=== PATIENT | male | born 1990 | race Caucasian/White ===

== ENCOUNTER 2017-06-27 10:11 | Day surgery (SDC) | payer OTHER, SELFPAY ==
[2017-06-27] VITALS (10 sets, daily range): BP systolic 97–135; BP diastolic 54–90; PULSE 64–92; RESP 11–19; TEMP 36.1–37.3; O2SAT 96–100; BMI 24.8; BMI 25.9
--- NOTE | 2017-06-27 | APP_PTH ---
PATIENT: MAYANK LINDO LOC: [facility] – [place], [place] U#:[id number] AGE/SX: 27/M ROOM: RE06/27/[address]: Dr. Spenser Davila MD : 1990 BED: DIS: 06/28/2017 SPEC #: [id number] RECD: 06/28/17 09:05 STATUS: ARIAS DAVE #: [id number] JOSE: 06/27/17 00:[address]: Spenser Davila DEPT: SURGICAL PATHOLOGY RECD BY: Romain Thomas ENTERED: 06/28/17 09:06 SP TYPE: APPENDIX OTHR DR: Dr. Buck Rouse MD Tissues: Appendix, NOS Procedures: Surgery Specimen Level III HEADER OPERATION: Laparoscopic, appendectomy PRE-OP DIAGNOSIS: Acute appendicitis TISSUE SUBMITTED: Appendix MICROSCOPIC DIAGNOSIS Appendix, appendectomy: Acute appendicitis. AM:manju 06/29/17 MICROSCOPIC DESCRIPTION Slides are reviewed. GROSS DESCRIPTION Received is one container labeled with the patient's name and designated appendix. The specimen consists of a J-shaped appendix measuring 8.5 cm in length and up to 1.5 cm in average diameter. The attached periappendiceal adipose tissue measures up to 1 cm in width. The serosa is congested. No obvious perforation is identified. The lumen contains brownish-black fecalith measuring 1 cm in greatest dimension. Marking Stitcher sections are submitted in one cassette. / SJ:manju 06/28/17 TC:2 CPT: 25583
--- NOTE | 2017-06-27 10:27 | CT_ITS ---
STUDY: CT ABDOMEN AND PELVIS WITHOUT CONTRAST REASON FOR EXAM: Male, 27 years old. MID ABDOMINAL PAIN X 3 DAYS. RADIATION DOSAGE (If Supplied By Facility): CTDIvol = ( 8.37 ) mGy, DLP = ( 461.91 ) mGycm TECHNIQUE: Transaxial images were obtained from the dome of the diaphragm to the symphysis pubis without oral contrast, and without intravenous contrast. Sagittal and coronal images were reconstructed. Individualized dose optimization techniques were used for this CT. COMPARISON: None. FINDINGS: The visualized lung bases are unremarkable. The visualized portions of the heart are within normal limits. Normal liver. Normal gallbladder and extrahepatic biliary system. Normal spleen. Normal pancreas. Normal bilateral adrenal glands. Normal right kidney. Normal left kidney. Normal visualized stomach. Normal small intestine. There are multiple colonic diverticula consistent with diverticulosis. There is a tubular, thick-walled appendix (>16mm) with appendicolith, consistent with acute appendicitis. There is surrounding inflammatory changes. There is no perforation or abscess. Normal abdominal aorta. Normal inferior vena cava. Normal retroperitoneum. Normal urinary bladder. Normal abdominal wall. Normal osseous structures. CT/Abdomen/Pelvis without Cont IMPRESSION: Acute appendicitis. No perforation or abscess. N.B. : The above information has been verbally conveyed by Hollie Alfredo MD to Dr. Trae Montalvo, Covering Physician, on 06/27/2017 11:51:20 (ET). Electronically Signed: Hollie Alfredo MD at 11:44 EDT Tel , Service support , N.B. : The above information has been verbally conveyed by Hollie Alfredo MD to Dr. Trae Montalvo, Covering Physician, on 06/27/2017 11:51:20 (ET).
[2017-06-27] MEDS: Ondansetron 4 MG/2 ML Vial IV (10:45)
[2017-06-27] MEDS: 0.9% Normal Saline 1,000 ML 125 ML IV (10:45)
[2017-06-27] MEDS: Morphine 4 MG/ML Syringe IV ×3 (10:45→15:40)
[2017-06-27 10:58] LABS: Absolute Lymphocyte Count 1.69 X10^3/ul (0.83-4.51); Absolute Neutrophil Count 6.1 X10^3/uL (2.0-7.7); Basophil# 0.03 X10^3/uL; Basophil% 0.3 % (0-1); Eosinophil# 0.13 X10^3/uL; Eosinophils% 1.5 % (0-5); Hematocrit 41.5 % (40-54); Hemoglobin 14.5 g/dl (13.0-16.5); Lymphocyte # 1.69 X10^3/ul (4.0); Lymphocyte % 19.4 % (19-41); Mean Corp Hgb Conc 34.9 g/gl (32-36); Mean Corpuscular Hgb 29.8 pg (27.0-32.0); Mean Corpuscular Volume 85.4 fL (80-94); Mean Platelet Vol. 9.1 fl (6.2-12.0); Monocyte# 0.76 X10^3/uL; Monocyte% 8.7 % (0-10); Neutrophil # 6.08 X10^3/uL (2.7-7.7); POSITIVE COUNT NO; POSITIVE DIFFERENTIAL NO; POSITIVE MORPHOLOGY NO; Platelet Count 236 K/mm3 (150-450); RBC Distribution Width CV 12.4 % (11.6-14.6); RBC Distribution Width SD 38.3 fl (35.1-43.9); Red Blood Count 4.86 M/mm3 (4.6-6.2); White Blood Count 8.7 K/mm3 (4.4-11.0)
[2017-06-27 11:08] LABS: AST(SGOT) 41 U/L (15-37); Alanine Aminotransfer ALT/SGPT 115 U/L (16-61); Albumin, Serum 4.1 g/dL (3.2-5.0); Alkaline Phosphatase 84 U/L (45-117); Anion Gap 9 (5-15); BUN 12 mg/dL (7-18); BUN/Creat Ratio 11.3 RATIO (10-20); Calcium,Total 9.2 mg/dL (8.5-10.1); Chloride 103 mmol/L (98-107); Creatinine, Serum 1.06 mg/dL (0.70-1.30); EST Glomerular Filtration Rate 88 mL/min (>60); Est Glom Filt Rate - Afr Amer 107 mL/min (>60); Estimated Creatinine Clearance 134.13 ml/min; Globulin 4.1 g/dL (2.2-4.2); Glucose 147 mg/dL (74-106); Lipase 88 U/L (73-393); Potassium 3.3 mmol/L (3.5-5.1); Protein, Total 8.2 g/dL (6.4-8.2); Sodium Level 140 mmol/L (136-145)
--- NOTE | 2017-06-27 11:53 | ED.VISSUMM ---
- ER Visit Summary Date of Service: 06/27/17 Chief Complaint: [Abdominal pain] History of Present Illness: The patient is a 27 M [presents the emergency department with abdominal pain that started 2 days ago. Patient states the pains been relatively continuous and he described initially as upper abdomen. Patient has had nausea. Patient took some Pepto-Bismol yesterday and this morning felt he was doing okay but then he ate which causes pain to increase. Patient also had a bowel movement today and he noticed black stool. Patient denies any fever. Patient does not have a history of peptic ulcer disease.] Physical Examination: [HEENT-PERRLA, EOMI. Cranial nerves II through XII grossly intact. TMs clear. Mucous membranes moist. No adenopathy. Cardiovascular-regular rate and rhythm without murmur or ectopy Lungs-clear to auscultation, chest wall stable without crepitus or subcu emphysema Abdomen-normoactive bowel sounds, soft. Patient has tenderness palpation over right lower quadrant with some guarding. There is no rebound, rigidity, or perineal signs. Rectal exam-patient had black stool that was Hemoccult negative Extremities-intact ?4, normal range of motion, normal pulses, atraumatic] Test Results: [CBC with differential was normal. Chemistries unremarkable. LFTs showed slightly elevated ALT of 115, AST 41. Lipase was 88. Hemoccult was negative.] CT flank obtained showed acute appendicitis Emergency Department Course and Treatment: [Patient was started on Zosyn. Patient case was discussed with Dr. Spenser Davila] who will present to the ER to evaluate patient for surgical intervention. Patient also received morphine and Zofran in the emergency department. Treatment Plan: [Admit for OR] Disposition: [Admit] Impression: [Acute appendicitis] This note was generated with [employer] dictation software. It may contain incorrect words, spelling, and punctuation that were not noted in review of the chart prior to signing ED Disposition - Plan for ED Patient: Chief Complaint: Abd Pain Referrals: Buck Rouse MD [Primary Care Provider] -
--- NOTE | 2017-06-27 12:26 | PCM.HP.STD ---
Problem List (1) Appendicitis Status: Acute (2) MTHFR gene mutation Status: Acute History of Present Illness Date of Admission: 06/27/17 The patient is a 27 year old M with a 2 day history of abdominal pain now localizing to the right lower quadrant. WBC count is within normal range. CT scan demonstrated appendicitis. Past Medical History Allergies shellfish derived Adverse Reaction (Verified 06/27/17 10:12) Nausea/Vom/Diarrhea Home Medications: Ambulatory Orders Medication Instructions Recorded [place]-3 Fatty Acids/Fish Oil [Fish 1 each PO DAILY 06/27/17 Oil 1,000 mg Capsule] Gifford's Wort 300 mg PO DAILY 06/27/17 Surgical History: no surgical history Smoking Status: Never smoker Tobacco Use: Non-smoker Alcohol: Occasional Review of Systems Constitutional: Reports: Anorexia. Denies: Chills, Fever, Weight Change HEENT: Denies: Head Aches, Sinus Congestion, Sinus Drainage Cardiovascular: Denies: Chest Pain, Palpitations Respiratory: Denies: Cough, Shortness of breath at rest, Sputum production Gastrointestinal: Reports: Abdominal Pain. Denies: Nausea, Vomiting Genitourinary: Denies: Dysuria Musculoskeletal: Denies: Joint Pain, Joint Tenderness Skin: Denies: Rash, Wounds Neurological: Denies: Numbness, Tingling, Focal weakness Psychiatric: Denies: Anxiety, Depression, Homicidal Ideations, Suicidal Ideations Hematologic/ Lymphatic: Denies: Easy Bruising, Easy Bleeding VTE Information - Inpt Only VTE Present on Admission: No VTE Mechan Device Prophylaxis: SCD's VTE Pharm Prophylaxis ordered?: No Patient Problems: Active and Suspected Problems Appendicitis (Acute) MTHFR gene mutation (Acute) - Physical Exam General: Alert, Oriented x3, Cooperative HEENT: Atraumatic, PERRLA, EOMI, Normocephalic Neck: Supple, No JVD, Negative Carotid Bruits Lungs: Clear to auscultation, Normal air movement Cardiovascular: Regular rate, No murmurs Abdomen: Bowel Sounds Present, Soft, Tender - RLQ Extremities: No edema, Capillary Refill Less than 3 Seconds Skin: No rashes, No breakdown Musculoskeletal: No Tenderness to Palpation of Joints or Extremities Neurological: Cranial nerves II-XII grossly intact Psych/Mental Status: Normal Affect, Appropriate Vital Signs Temp Pulse Resp BP Pulse Ox 98.3 F 92 19 H 135/90 H 100 06/27/17 10:13 06/27/17 10:13 06/27/17 10:13 06/27/17 10:13 06/27/17 10:13 Oxygen Delivery Method Room Air Weight: 97.522 kg Body Mass Index (BMI) 24.8 Microbiology Past 72 Hours 06/27/17 10:40 Stool Occult Blood (CLAIRE) - Final Stool Laboratory Tests Past 24 Hrs 06/27/17 06/27/17 06/27/17 10:40 10:40 10:40 WBC 8.7 RBC 4.86 Hgb 14.5 Hct 41.5 MCV 85.4 MCH 29.8 MCHC 34.9 RDW 12.4 RDW Differential 38.3 Plt Count 236 MPV 9.1 Immature Gran % (Auto) 0.100 Neut % (Auto) 70.0 Lymph % (Auto) 19.4 [place] % (Auto) 8.7 Eos % (Auto) 1.5 Baso % (Auto) 0.3 Absolute Neuts (auto) 6.1 Absolute Lymphs (auto) 1.69 Total Counted Not Reportable Sodium 140 Potassium 3.3 L Chloride 103 Carbon Dioxide 28.0 Anion Gap 9 BUN 12 Creatinine 1.06 Estim Creat Clear Calc 134.13 Est GFR (MDRD) Af Amer 107 Est GFR (MDRD) Non-Af 88 BUN/Creatinine Ratio 11.3 Glucose 147 H Calcium 9.2 Total Bilirubin 0.70 AST 41 H ALT 115 H Alkaline Phosphatase 84 Total Protein 8.2 Albumin 4.1 Globulin 4.1 Albumin/Globulin Ratio 1.0 Lipase 88 Blood Type O NEGATIVE Antibody Screen NEGATIVE Assessment/Plan Active and Suspected Problems Appendicitis (Acute) MTHFR gene mutation (Acute) Appendicitis I plan to perform a laparoscopic appendectomy. The patient understands the risks, benefits, possible complications and alternatives and consents to the procedure. He was given Zosyn in the ER He is heterozygous for MTHFR mutation. HE will get SCD's
[2017-06-27] MEDS: Bupivacaine Mpf 0.5% 30 ML VIAL (12:56)
--- NOTE | 2017-06-27 14:24 | PCM.OPRPT ---
Problem List (1) Appendicitis Status: Acute (2) MTHFR gene mutation Status: Acute Report of Operation Date of Procedure: 06/27/17 Pre-Operative Diagnosis: appendicitis Post-Operative Diagnosis: perforated appendicitis - minimal contamination Surgery/Procedure Performed:: laparoscopic appendectomy roll picker: None Type of Anesthesia:: General Anesthesiologist: Pushpa Tobar - deisy2E Specimen's removed: appendix Estimated Blood Loss (mL): 25 Fluids Replaced: 800 Description of Procedure: The patient was brought to the operating suite. Sign in was performed verifying patient, site, procedure, position, and DVT prophylaxis with SCDs. Patient received 4.5 g Zosyn for presumed appendicitis. Following induction of general anesthetic. The patients abdomen was prepped and draped in the usual fashion. Timeout was performed verifying patient, site, position. Local anesthetic was injected below the umbilicus. Incision made and dissection carried down to the umbilical root fascia. 2 stay sutures were placed. Incision made in the fascia, the peritoneum entered under direct visualization. A 10 mm Issa trocar was inserted and secured with the stay sutures. Pneumoperitoneum to 15 mmHg was insufflated. Visual inspection revealed the distal two thirds of the appendix seemed somewhat edematous and inflamed 2 5mm ports were placed in the standard position. The mesoappendix wasmobilized and then transected with a Harmonic scalpel. There was localized perforation inthe the mesoappendix with minimal contamination. The appendix transected with the intestinal load Endo GLADYS stapler at the base of the cecum. The mesoappendix was transected with a Harmonic scalpel. The appendix was placed in an Endobag and removed through the umbilical port site. An 0 PDS [id number] suture was placed around the umbilical port site defect. Pneumoperitoneum was reestablished. The appendiceal area was checked for hemostasis. 5 ports were removed under direct visualization with no signs of bleeding. Pneumoperitoneum was released. The Issa trocar was removed. The umbilical fascial suture was secured area did skin was closed with interrupted 4-0 Monocryl subcuticular sutures. Steri-Strips and bandages were applied. The patient was brought to recovery room in stable condition - Admit VTE Documentation VTE Present on Admission: No VTE Mechan Device Prophylaxis: SCD's
--- NOTE | 2017-06-27 14:30 | OP.PCM_ITS ---
Problem List (1) Appendicitis Status: Acute (2) MTHFR gene mutation Status: Acute Report of Operation Date of Procedure: 06/27/17 Pre-Operative Diagnosis: appendicitis Post-Operative Diagnosis: perforated appendicitis - minimal contamination Surgery/Procedure Performed:: laparoscopic appendectomy deputy fire marshal: None Type of Anesthesia:: General Anesthesiologist: Pushpa Tobar - deisy2E Specimen's removed: appendix Estimated Blood Loss (mL): 25 Fluids Replaced: 800 Description of Procedure: The patient was brought to the operating suite. Sign in was performed verifying patient, site, procedure, position, and DVT prophylaxis with SCDs. Patient received 4.5 g Zosyn for presumed appendicitis. Following induction of general anesthetic. The patient?s abdomen was prepped and draped in the usual fashion. Timeout was performed verifying patient, site , position. Local anesthetic was injected below the umbilicus. Incision made and dissection carried down to the umbilical root fascia. 2 stay sutures were placed. Incision made in the fascia, the peritoneum entered under direct visualization. A 10 mm Issa trocar was inserted and secured with the stay sutures. Pneumoperitoneum to 15 mmHg was insufflated. Visual inspection revealed the distal two thirds of the appendix seemed somewhat edematous and inflamed 2 5mm ports were placed in the standard position. The mesoappendix wasmobilized and then transected with a Harmonic scalpel. There was localized perforation inthe the mesoappendix with minimal contamination. The appendix transected with the intestinal load Endo GLADYS stapler at the base of the cecum. The mesoappendix was transected with a Harmonic scalpel. The appendix was placed in an Endobag and removed through the umbilical port site. An 0 PDS [id number] suture was placed around the umbilical port site defect. Pneumoperitoneum was reestablished. The appendiceal area was checked for hemostasis. 5 ports were removed under direct visualization with no signs of bleeding. Pneumoperitoneum was released. The Issa trocar was removed. The umbilical fascial suture was secured area did skin was closed with interrupted 4-0 Monocryl subcuticular sutures. Steri-Strips and bandages were applied. The patient was brought to recovery room in stable condition - Admit VTE Documentation VTE Present on Admission: No VTE Mechan Device Prophylaxis: SCD's
[2017-06-27] MEDS: Lactated Ringers 1,000 ML 100 ML IV (16:30)
--- NOTE | 2017-06-27 17:41 | NURSING ---
Ambulated with this nurses assistance to bathroom, then ambulated in mcintyre x1 around unit.
[2017-06-27] MEDS: Ketorolac 30 MG/ML Syringe IV (18:32)
[2017-06-27] MEDS: Piperacil/Tazobactam 3.375 GM/50 ML ML IV (20:05)
[2017-06-28] MEDS: oxyCODONE 5 MG Tablet PO ×2 (00:11→04:13)
[2017-06-28 03:30] VITALS: BP 113/58; PULSE 66; RESP 18; TEMP 36.9; O2SAT 100
[2017-06-28] MEDS: Lactated Ringers 1,000 ML 100 ML IV (04:17)
[2017-06-28] MEDS: Piperacil/Tazobactam 3.375 GM/50 ML ML IV (04:17)
[2017-06-28] MEDS: Ibuprofen 400 MG Tablet PO ×2 (06:25→14:47)
--- NOTE | 2017-06-28 06:28 | NURSING ---
Pt states now starting to pass some gas.
[2017-06-28 06:45] LABS: Anion Gap 9 (5-15); BUN 10 mg/dL (7-18); BUN/Creat Ratio 12.1 RATIO (10-20); Calcium,Total 8.3 mg/dL (8.5-10.1); Chloride 106 mmol/L (98-107); Creatinine, Serum 0.83 mg/dL (0.70-1.30); EST Glomerular Filtration Rate 117 mL/min (>60); Est Glom Filt Rate - Afr Amer 142 mL/min (>60); Glucose 131 mg/dL (74-106); Potassium 3.9 mmol/L (3.5-5.1); Sodium Level 137 mmol/L (136-145)
[2017-06-28 06:53] LABS: Absolute Neutrophil Count 9.7 X10^3/uL (2.0-7.7); Basophil# 0.01 X10^3/uL; Basophil% 0.1 % (0-1); Hematocrit 34.7 % (40-54); Hemoglobin 11.9 g/dl (13.0-16.5); Lymphocyte % 6.6 % (19-41); Mean Corp Hgb Conc 34.3 g/gl (32-36); Mean Corpuscular Hgb 29.9 pg (27.0-32.0); Mean Corpuscular Volume 87.2 fL (80-94); Mean Platelet Vol. 9.2 fl (6.2-12.0); Monocyte# 1.56 X10^3/uL; Monocyte% 12.9 % (0-10); Neutrophil # 9.71 X10^3/uL (2.7-7.7); Neutrophil % 80.2 % (47-70); Platelet Count 216 K/mm3 (150-450); RBC Distribution Width CV 12.3 % (11.6-14.6); RBC Distribution Width SD 38.3 fl (35.1-43.9); Red Blood Count 3.98 M/mm3 (4.6-6.2); White Blood Count 12.1 K/mm3 (4.4-11.0)
[2017-06-28 07:03] LABS: POSITIVE COUNT NO; POSITIVE DIFFERENTIAL YES; POSITIVE MORPHOLOGY NO
[2017-06-28 07:04] LABS: Differential Indicated SCAN CRITERIA MET
[2017-06-28 07:20] LABS: Differential Comment SCANNED
--- NOTE | 2017-06-28 07:22 | PCM.DC.APPY ---
Discharge Diet: Light diet - advance as tolerated Discharge Activity: May Not Drive - for 3-5 days or while taking narcotic pain meds. May shower in (days): 1 Suture Line Care: Avoid Pulling/Pushing, Avoid Pinching/Bending Additional Dressing/Incision Instructions:: Keep dressing clean and dry. Change or remove dressing in 2 days. Leave steri strips for 1 week. May protect with a gauze bandaid. Medications to take at Discharge [place]-3 Fatty Acids/Fish Oil [Fish Oil 1,000 mg Capsule] 1 each PO DAILY 06/27/17 [place]mair's Wort 300 mg PO DAILY 06/27/17 Ibuprofen [Motrin] 400 mg PO Q4H PRN PRN tablet 06/28/17 Oxycodone [Oxyir] 5 mg PO Q4H PRN PRN 7 Days #20 tab 06/28/17 Allergies/Adverse Reactions: Allergies shellfish derived Adverse Reaction (Verified 06/27/17 10:12) Nausea/Vom/Diarrhea The following prescriptions were given: Oxycodone [Oxyir] 5 mg PO Q4H PRN PRN 7 Days #20 tab PRN Reason: Severe Pain (6-12/29) Primary Care Physician: Buck Rouse MD [Primary Care Provider] - Please Follow Up With: Spenser Davila MD - [phone] When: Call to make a follow up appointment in 1 week.
[2017-06-28 08:05] VITALS: BP 105/45; PULSE 57; RESP 16; TEMP 36.9; O2SAT 100
[2017-06-28 14:47] LABS: Pathologist Review Reviewed
--- NOTE | 2017-06-28 14:54 | PCM.PN.SRG ---
Patient Problems: Active and Suspected Problems Appendicitis (Acute) MTHFR gene mutation (Acute) Subjective: manageable incisional pain, tolerating diet - Physical Exam General: Alert, Oriented x3 Lungs: Clear to auscultation, Normal air movement Cardiovascular: Regular rate, Regular Rhythm Abdomen: Bowel Sounds Present, Soft, Tender - incisions Vital Signs Temp Pulse Resp BP Pulse Ox 98.5 F 57 L 16 105/45 L 100 06/28/17 08:05 06/28/17 08:05 06/28/17 08:05 06/28/17 08:05 06/28/17 08:05 Oxygen Delivery Method Room Air Weight: 101.605 kg Body Mass Index (BMI) 25.9 Intake and Output for Last 24 Hours 06/26/17 06/27/17 06/28/17 23:59 23:59 23:59 Intake Total 1040 / 1040 2681.6 / 2681.6 Output Total 1600 / 1600 Balance 1040 / 1040 1081.6 / 1081.6 Microbiology Past 72 Hours 06/27/17 10:40 Stool Occult Blood (CLAIRE) - Final Stool Laboratory Tests Past 24 Hrs 06/28/17 06/28/17 05:52 05:52 WBC 12.1 H RBC 3.98 L Hgb 11.9 L Hct 34.7 L MCV 87.2 MCH 29.9 MCHC 34.3 RDW 12.3 RDW Differential 38.3 Plt Count 216 MPV 9.2 Immature Gran % (Auto) 0.200 Neut % (Auto) 80.2 H Lymph % (Auto) 6.6 L [place] % (Auto) 12.9 H Eos % (Auto) 0.0 Baso % (Auto) 0.1 Absolute Neuts (auto) 9.7 H Absolute Lymphs (auto) 0.80 L Total Counted Not Reportable Differential Comment SCANNED Diff Path Review Reviewed Sodium 137 Potassium 3.9 Chloride 106 Carbon Dioxide 22.0 Anion Gap 9 BUN 10 Creatinine 0.83 Estim Creat Clear Calc 171.30 Est GFR (MDRD) Af Amer 142 Est GFR (MDRD) Non-Af 117 BUN/Creatinine Ratio 12.1 Glucose 131 H Calcium 8.3 L Medical Necessity - Tobacco Use Smoking Status: Never smoker Tobacco Use: Non-smoker Assessment/Plan Active and Suspected Problems Appendicitis (Acute) MTHFR gene mutation (Acute) Appendicitis - POD # 1 s/p laparoscopic appendectomy. febrile overnight. The patient is maintained on Zosyn okay for discharge same postoperative day 1.
--- NOTE | 2017-06-28 14:55 | PCM.DC.SUM ---
Discharge Date and Diagnosis - Problem List Patient Problems: Active and Suspected Problems Appendicitis (Acute) MTHFR gene mutation (Acute) Date of Admission: 06/27/17 Date of Discharge: 06/28/17 - Primary Discharge Diagnosis Active and Suspected Problems Appendicitis (Acute) MTHFR gene mutation (Acute) Hospital Course and Treatment Operations: appendectomy Summary of Care Provided: The patient is a 27 year old M who presents with a one-day history of abdominal localizing to right lower quadrant pain with signs of appendicitis on CT scan. He underwent laparoscopic appendectomy. the patient was tolerated oral pain medicine and a diet. He was ready discharged home on postoperative day 1. Discharge Diet: Light diet - advance as tolerated Discharge Activity: May Not Drive - for 3-5 days or while taking narcotic pain meds. May shower in (days): 1 Suture Line Care: Avoid Pulling/Pushing, Avoid Pinching/Bending Additional Dressing/Incision Instructions:: Keep dressing clean and dry. Change or remove dressing in 2 days. Leave steri strips for 1 week. May protect with a gauze bandaid. Home Medications: Medications to take at Discharge [place]-3 Fatty Acids/Fish Oil [Fish Oil 1,000 mg Capsule] 1 each PO DAILY 06/27/17 [place]'s Wort 300 mg PO DAILY 06/27/17 Ibuprofen [Motrin] 400 mg PO Q4H PRN PRN tablet 06/28/17 Oxycodone [Oxyir] 5 mg PO Q4H PRN PRN 7 Days #20 tab 06/28/17 Following Prescrptions Were Given to Patient: Oxycodone [Oxyir] 5 mg PO Q4H PRN PRN 7 Days #20 tab PRN Reason: Severe Pain (6-10/10) Primary Care Physician: Buck Rouse MD [Primary Care Provider] - Please Follow Up With: Spenser Davila MD - [phone] When: Call to make a follow up appointment in 1 week. Medical Necessity - Tobacco Use Smoking Status: Never smoker Tobacco Use: Non-smoker Meaningful Use Info Meaningful Use Diagnoses (Choose all that apply): None applicable
[2017-06-28 15:01] VITALS: BP 128/62; PULSE 68; RESP 18; TEMP 36.6; O2SAT 100
== END 2017-06-28 15:09 | disposition home or self-care (01) ==
LOC: ED 12:27 → SDC 13:09 → MS2 17:24
PROVIDERS: Emergency Provider Emergency Medicine; Family Provider Family Medicine; PCP Family Medicine; Visit Provider Surgery
PROC: 0DTJ4ZZ Resection of Appendix, Percutaneous Endoscopic Approach (ICD-10-PCS; CPT 44970; principal; 2017-06-27 13:00)
DX: K35.2 Acute appendicitis with generalized peritonitis (principal); E72.12 Methylenetetrahydrofolate reductase deficiency
CPT/HCPCS: 44970; 36415; 74176; 80048; 80053; 82274; 83690; 85025; 86850; 86900; 88304; 97802; 99285; J7030; J7120; A4216; J2405

== ENCOUNTER 2017-06-29 01:41 | Emergency (ER) | payer OTHER, SELFPAY ==
[2017-06-29 01:43] VITALS: BP 125/69; PULSE 86; RESP 18; TEMP 37.3; O2SAT 98; BMI 25.2
[2017-06-29] MEDS: Morphine 4 MG/ML Syringe IV (02:16)
--- NOTE | 2017-06-29 02:17 | ED.DCSUM_ITS ---
- ER Visit Summary Date of Service: 06/29/17 Chief Complaint: [] Abdominal pain History of Present Illness: The patient is a 27 M patient status post appendectomy 2 days ago discharge yesterday afternoon. He had an inflamed appendix. There was a small microperforation seen on surgical exploration. He was on inpatient antibiotics but none at home. He is on oxycodone at home. He had worsening pain this evening and a temperature of 100.1 at midnight so he came in for further evaluation. Physical Examination: Vital signs reviewed General: Well-nourished well-developed Head: Normocephalic atraumatic Eyes: Pupils equal round and reactive to light extraocular movements intact ENT: TMs clear no hemotympanum no trauma Neck: Nontender full range of motion Cardiovascular: Regular rate rhythm no murmurs normal S1-S2 Respiratory: No distress clear to auscultation bilaterally chest nontender Abdomen: Soft. Surgical incisions clean dry and intact. Mild lower abdominal tenderness without guarding or rebound. Back: Nontender no CVA tenderness Extremities: Nontender active range of motion ?4 extremities no trauma Skin: Normal color no trauma Neuro alert oriented cranial nerves II through XII intact normal strength sensation reflexes Test Results: [] Emergency Department Course and Treatment: [] Patient given a dose of IV morphine. Afebrile here. CBC obtained after speaking to Dr. Davila. BC is 9.9. This is down from 12.1. At this time of the low suspicion for intra- abdominal infection that would warrant antibiotics or a CAT scan. He is resting comfortably. He will follow-up as an outpatient Treatment Plan: [] Disposition: [] Impression: [] Postop abdominal pain This note was generated with [employer] dictation software. It may contain incorrect words, spelling, and punctuation that were not noted in review of the chart prior to signing ED Disposition - Plan for ED Patient: Chief Complaint: Abd Pain Referrals: Buck Rouse MD [Primary Care Provider] -
[2017-06-29 02:28] LABS: Absolute Neutrophil Count 7.5 X10^3/uL (2.0-7.7); Basophil# 0.03 X10^3/uL; Basophil% 0.3 % (0-1); Eosinophil# 0.05 X10^3/uL; Eosinophils% 0.5 % (0-5); Hematocrit 33.9 % (40-54); Hemoglobin 11.8 g/dl (13.0-16.5); Lymphocyte % 12.1 % (19-41); Mean Corp Hgb Conc 34.8 g/gl (32-36); Mean Corpuscular Hgb 30.7 pg (27.0-32.0); Mean Corpuscular Volume 88.3 fL (80-94); Mean Platelet Vol. 8.9 fl (6.2-12.0); Monocyte# 1.05 X10^3/uL; Monocyte% 10.6 % (0-10); Neutrophil # 7.54 X10^3/uL (2.7-7.7); Neutrophil % 76.2 % (47-70); Platelet Count 201 K/mm3 (150-450); RBC Distribution Width CV 12.4 % (11.6-14.6); RBC Distribution Width SD 39.5 fl (35.1-43.9); Red Blood Count 3.84 M/mm3 (4.6-6.2); White Blood Count 9.9 K/mm3 (4.4-11.0)
[2017-06-29 02:29] LABS: POSITIVE COUNT NO; POSITIVE DIFFERENTIAL NO; POSITIVE MORPHOLOGY NO
--- NOTE | 2017-06-29 02:33 | ED.DEP ---
ED Disposition - Plan for ED Patient: Disposition: Home or Assisted Living Chief Complaint: Abd Pain Instructions: After an Appendectomy Referrals: Buck Rouse MD [Primary Care Provider] - Spenser Davila MD [STAFF PHYSICIAN] -
[2017-06-29 03:12] VITALS: BP 121/67; PULSE 68; RESP 17; O2SAT 98
--- NOTE | 2017-06-29 03:12 | ED.RN ---
IV DC'ED, CATHETER INTACT, SMALL GAUZE DRESSING PLACED. DISCHARGE INSTRUCTIONS GIVEN TO AND REVIEWED WITH PATIENT, PATIENT DENIES QUESTIONS OR CONCERNS AND VOICES UNDERSTANDING OF DISCHARGE INSTRUCTIONS. PT AMBULATES OUT OF ROOM WITHOUT DIFFICULTY.
== END 2017-06-29 03:13 | disposition home or self-care (01) ==
PROVIDERS: Emergency Provider Emergency Medicine; Family Provider Family Medicine; PCP Family Medicine
DX: G89.18 Other acute postprocedural pain (principal); R10.9 Unspecified abdominal pain
CPT/HCPCS: 85025; 96374; 99283; A4216

== ENCOUNTER 2017-07-01 22:07 | Observation (INO) | payer OTHER, SELFPAY ==
[2017-07-01 22:09] VITALS: BP 119/71; PULSE 71; RESP 14; TEMP 37.2; O2SAT 97; BMI 25.0
[2017-07-01 23:03] LABS: Bacteria 0 SEEN /hpf (None Seen); Red Blood Cells-Urine 0 SEEN /hpf (0-5); Squamous Epithelial Cells - UA 0 SEEN /hpf (0-5)
[2017-07-01 23:05] LABS: Color, Urine Yellow (Yellow); Glucose, Dipstick Normal (Normal); Ketone-Dipstick 5 mg/dl (Negative); Leukocyte Esterase-Dipstick 25 /ul (Negative); Nitrite-Dipstick Negative (Negative); Occult Blood-Urine 25 /ul (Negative); Protein-Dipstick 30 mg/dl (Negative); Specific Gravity, Urine 1.025 (1.002-1.030); Urine Bilirubin Dipstick Negative (Negative); Urine Clarity Clear (Clear); Urine Urobilinogen Normal (Normal)
[2017-07-01 23:10] LABS: Mucous, Urine 2+ /hpf (<or=2+); White Blood Cells 0-5 SEEN /hpf (0-5)
--- NOTE | 2017-07-01 23:25 | ED.VISSUMM ---
- ER Visit Summary Date of Service: 07/01/17 Chief Complaint: Fever, intermittent abdominal pain History of Present Illness: The patient is a 27 M continued intermittent fevers for the past 4 days. 4 days postop appendectomy by Dr. Nash. Discharged. He was seen in the ED 2 days ago with an improved white count and discussion with surgery. He followed up with Dr. Nash today at 2 PM. States was having diarrhea that was watery all day yesterday. States had x-ray today along with a repeat CBC and stool studies sent. This evening at 9 PM was called by Dr. Nash sent to the ED for evaluation. States would continue to have fevers controlled with Tylenol. No cough. States did not have a Olson catheter. States feels and urine discomfort due to his fever. No dysuria. Pain is abdomen with come and go, currently does not have symptoms. Physical Examination: General: Alert and oriented ?3, no acute distress HEENT: Normocephalic, atraumatic. Moist mucosa membranes Neck: supple, nontender. Cardiovascular: Regular rate and rhythm, no murmurs Respiratory: Normal breath sounds, symmetric, no distress Abdomen: Soft, nontender, nondistended. Laparoscopic incisions with Steri-Strips with no drainage. 3 incisions. Extremities: Nontender, no edema, pulses intact ?4 Neuro: no focal neurological deficits. Test Results: CT abdomen pelvis: Concerns of ileus proximal small bowel. Postsurgical inflammatory findings cecum ascending colon and distal ileum. No abscess. Emergency Department Course and Treatment: Patient vital signs stable. Declines any medications. IV fluids started due to diarrhea symptoms. Workup initiated per request of surgery when called in. Abdominal labs are negative. Trending down white cell counts. CT scan noted ileus and postsurgical findings. The cannot rule out infection. However he has trending down white count. Discussed with covering surgeon, Dr. Lobo who will admit for observations for IV fluids. Stool cultures were performed as an outpatient. Later did receive callback from his surgeon, Dr. Nash updated and he will see in the hospital. Treatment Plan: [] Disposition: Admission Impression: 1. Ileus 2. Diarrhea 3. Postop day 4 appendectomy This note was generated with [employer] dictation software. It may contain incorrect words, spelling, and punctuation that were not noted in review of the chart prior to signing ED Disposition - Plan for ED Patient: Disposition: Acute Care Hospital [facility] Chief Complaint: General Illness Diagnosis: Ileus, Diarrhea, Postop appendectomy
--- NOTE | 2017-07-01 23:28 | ED.DCSUM_ITS ---
- ER Visit Summary Date of Service: 07/01/17 Chief Complaint: Fever, intermittent abdominal pain History of Present Illness: The patient is a 27 M continued intermittent fevers for the past 4 days. 4 days postop appendectomy by Dr. Nash. Discharged. He was seen in the ED 2 days ago with an improved white count and discussion with surgery. He followed up with Dr. Nash today at 2 PM. States was having diarrhea that was watery all day yesterday. States had x-ray today along with a repeat CBC and stool studies sent. This evening at 9 PM was called by Dr. Nash sent to the ED for evaluation. States would continue to have fevers controlled with Tylenol. No cough. States did not have a Olson catheter. States feels and urine discomfort due to his fever. No dysuria. Pain is abdomen with come and go, currently does not have symptoms. Physical Examination: General: Alert and oriented ?3, no acute distress HEENT: Normocephalic, atraumatic. Moist mucosa membranes Neck: supple, nontender. Cardiovascular: Regular rate and rhythm, no murmurs Respiratory: Normal breath sounds, symmetric, no distress Abdomen: Soft, nontender, nondistended. Laparoscopic incisions with Steri- Strips with no drainage. 3 incisions. Extremities: Nontender, no edema, pulses intact ?4 Neuro: no focal neurological deficits. Test Results: CT abdomen pelvis: Concerns of ileus proximal small bowel. Postsurgical inflammatory findings cecum ascending colon and distal ileum. No abscess. Emergency Department Course and Treatment: Patient vital signs stable. Declines any medications. IV fluids started due to diarrhea symptoms. Workup initiated per request of surgery when called in. Abdominal labs are negative. Trending down white cell counts. CT scan noted ileus and postsurgical findings. The cannot rule out infection. However he has trending down white count. Discussed with covering surgeon, Dr. Lobo who will admit for observations for IV fluids. Stool cultures were performed as an outpatient. Later did receive callback from his surgeon, Dr. Nash updated and he will see in the hospital. Treatment Plan: [] Disposition: Admission Impression: 1. Ileus 2. Diarrhea 3. Postop day 4 appendectomy This note was generated with [employer] dictation software. It may contain incorrect words, spelling, and punctuation that were not noted in review of the chart prior to signing ED Disposition - Plan for ED Patient: Disposition: Acute Care Hospital [facility] Chief Complaint: General Illness Diagnosis: Ileus, Diarrhea, Postop appendectomy
[2017-07-02] VITALS (8 sets, daily range): BP systolic 113–125; BP diastolic 63–74; PULSE 61–74; RESP 16–18; TEMP 36.4–37.2; O2SAT 97–100; BMI 25.0
[2017-07-02] MEDS: 0.9% Normal Saline 1,000 ML 1000 ML IV (00:04)
[2017-07-02 00:09] LABS: Absolute Neutrophil Count 4.8 X10^3/uL (2.0-7.7); Basophil# 0.02 X10^3/uL; Basophil% 0.3 % (0-1); Eosinophil# 0.24 X10^3/uL; Eosinophils% 3.1 % (0-5); Hematocrit 37.1 % (40-54); Hemoglobin 12.6 g/dl (13.0-16.5); Lymphocyte % 21.8 % (19-41); Mean Corpuscular Hgb 29.6 pg (27.0-32.0); Mean Corpuscular Volume 87.3 fL (80-94); Mean Platelet Vol. 8.4 fl (6.2-12.0); Monocyte# 1.04 X10^3/uL; Monocyte% 13.3 % (0-10); Neutrophil % 61.4 % (47-70); Platelet Count 236 K/mm3 (150-450); RBC Distribution Width CV 12.6 % (11.6-14.6); RBC Distribution Width SD 40.2 fl (35.1-43.9); Red Blood Count 4.25 M/mm3 (4.6-6.2); White Blood Count 7.8 K/mm3 (4.4-11.0)
[2017-07-02 00:10] LABS: POSITIVE COUNT NO; POSITIVE DIFFERENTIAL NO; POSITIVE MORPHOLOGY NO
[2017-07-02 00:29] LABS: ALB/GLOB Ratio 0.7 RATIO (0.9-2.4); AST(SGOT) 23 U/L (15-37); Alanine Aminotransfer ALT/SGPT 57 U/L (16-61); Albumin, Serum 3.1 g/dL (3.2-5.0); Alkaline Phosphatase 73 U/L (45-117); Anion Gap 8 (5-15); BUN 13 mg/dL (7-18); BUN/Creat Ratio 15.4 RATIO (10-20); Calcium,Total 8.7 mg/dL (8.5-10.1); Chloride 105 mmol/L (98-107); Creatinine, Serum 0.84 mg/dL (0.70-1.30); EST Glomerular Filtration Rate 115 mL/min (>60); Est Glom Filt Rate - Afr Amer 139 mL/min (>60); Estimated Creatinine Clearance 169.26 ml/min; Globulin 4.7 g/dL (2.2-4.2); Glucose 89 mg/dL (74-106); Lipase 72 U/L (73-393); Potassium 3.6 mmol/L (3.5-5.1); Protein, Total 7.8 g/dL (6.4-8.2); Sodium Level 140 mmol/L (136-145)
[2017-07-02] MEDS: 0.9% Normal Saline 1,000 ML 125 ML IV (00:53)
--- NOTE | 2017-07-02 03:35 | ED.RN ---
see drRambo order sheet.
--- NOTE | 2017-07-02 03:35 | ED.RN ---
received orders from dr. horne.
[2017-07-02] MEDS: Lactated Ringers 1,000 ML 75 ML IV ×2 (04:34→18:53)
[2017-07-02] MEDS: metroNIDAZOLE 500 MG Tablet PO ×3 (06:21→20:34)
--- NOTE | 2017-07-02 06:26 | PCM.HP.BLA ---
History and Physical Date of Admission: 07/02/17 ? Gordy is a patient I am following for acute appendicitis. ~I performed a laparoscopic appendectomy on WednesdayJune 27.. ~The patient's appendix demonstrated acute appendicitis with localized retroperitoneal~perforation~with minimal contamination. ~The patient did well post operatively and was discharged to home on post operative day #1. ? The patient then noted onset of all over body aches and fever up to 101, for which she been taking Tylenol nearly regularly [id number]. ~He was tolerating food and was having flatus and bowel movements but overall was feeling poor. ~He went back to the emergency department he was evaluated by the emergency physician on Wednesday night was found of a normal white blood cell count unremarkable vitals and afebrile. ~He was sent home. ~It spoken with him 2 times since that ER visit. ~Since last night, the patient still notes fever and generalized body aches area. ~He now notes relatively rampant diarrhea, which is watery-nonbloody. ~When he stops taking Tylenol. ~He again notes a low to moderate fever and generalized body aches. ~He has some epigastric discomfort but otherwise no specific abdominal pain and no right lower quadrant pain
--- NOTE | 2017-07-02 06:33 | HP.PCM_ITS ---
History of Present Illness Date of Admission: 07/02/17 The patient is a 27 year old M presents with all over body aches and diarrhea. ? Gordy is a patient I am following for acute appendicitis. ~I performed a laparoscopic appendectomy on WednesdayJune 27.. ~The patient's appendix demonstrated acute appendicitis with localized retroperitoneal~perforation~with minimal contamination. ~The patient did well post operatively and was discharged to home on post operative day #1. ? The patient then noted onset of all over body aches and fever up to 101, for which she been taking Tylenol nearly regularly [id number]. ~He was tolerating food and was having flatus and bowel movements but overall was feeling poor. ~He went back to the emergency department he was evaluated by the emergency physician on Wednesday night was found of a normal white blood cell count unremarkable vitals and afebrile. ~He was sent home. ~It spoken with him 2 times since that ER visit. ~Since last night, the patient still notes fever and generalized body aches area. ~He now notes relatively rampant diarrhea, which is watery-nonbloody. ~When he stops taking Tylenol. ~He again notes a low to moderate fever and generalized body aches. ~He has some epigastric discomfort but otherwise no specific abdominal pain and no right lower quadrant pain. I saw me in the office yesterday afternoon. He was afebrile. His respiratory and cardiac exam were unremarkable. His abdomen was clinically benign with hyperactive bowel sounds. I obtained an abdominal multiview which demonstrated a mild ileus pattern. I obtained laboratory studies that initially returned as a normal white blood cell count. Compazine metabolic panel was also obtained, which was also unremarkable. I obtained stool cultures. C. difficile is returned as negative. Stool cultures, ova and parasites, and fecal WBCs are currently pending. The patient called last night again stating that he was again having diarrhea nearly on the hour and his mother was concerned that he was becoming dehydrated and we really weren't having any answers for his symptomatology other than viral symptoms after appendectomy. he presented to the emergency department. CBC was normal with mild increase in monocytes as the only abnormality, comfortable block panel was normal, CT scan of the abdomen did demonstrate more inflammation of the terminal ileum and cecum, then I would've expected given his stage of appendicitis with some mild ileus-type picture proximal to that without signs of intra-abdominal abscess, consistent with post operative appendiceal/periappendiceal abscess. Past Medical History Allergies shellfish derived Adverse Reaction (Verified 07/01/17 22:12) Nausea/Vom/Diarrhea Home Medications: Ambulatory Orders Medication Instructions Recorded [place]-3 Fatty Acids/Fish Oil [Fish 1 each PO DAILY 06/27/17 Oil 1,000 mg Capsule] Ibuprofen [Motrin] 400 mg PO Q4H PRN PRN tablet 06/28/17 Oxycodone [Oxyir] 5 mg PO Q4H PRN PRN 7 Days #20 tab 06/28/17 Surgical History: appendectomy - postoperative day 5 Smoking Status: Never smoker Review of Systems Constitutional: Reports: Anorexia, Fever, Malaise, Fatigue. Denies: Chills, Weight Change HEENT: Denies: Head Aches, Sinus Congestion, Sinus Drainage Cardiovascular: Denies: Chest Pain, Palpitations Respiratory: Denies: Cough, Shortness of breath at rest, Sputum production Gastrointestinal: Reports: Diarrhea. Denies: Abdominal Pain, Nausea, Vomiting Genitourinary: Denies: Dysuria Musculoskeletal: Denies: Joint Pain, Joint Tenderness Skin: Denies: Rash, Wounds Neurological: Denies: Numbness, Tingling, Focal weakness Psychiatric: Denies: Anxiety, Depression, Homicidal Ideations, Suicidal Ideations Hematologic/ Lymphatic: Denies: Easy Bruising, Easy Bleeding VTE Information - Inpt Only VTE Present on Admission: No VTE Mechan Device Prophylaxis: SCD's Patient Problems: Active and Suspected Problems Ileus (Acute) Diarrhea (Acute) - Physical Exam General: Alert, Oriented x3, Cooperative HEENT: Atraumatic, PERRLA, EOMI, Normocephalic Neck: Supple, No JVD, Negative Carotid Bruits Lungs: Clear to auscultation, Normal air movement Cardiovascular: Regular rate, No murmurs Abdomen: Bowel Sounds Present, Soft, Non Tender, Hyperactive Bowel Sounds, - - incisions are clean, dry, and intact Extremities: No edema, Capillary Refill Less than 3 Seconds Skin: No rashes, No breakdown Musculoskeletal: No Tenderness to Palpation of Joints or Extremities Neurological: Cranial nerves II-XII grossly intact Psych/Mental Status: Normal Affect, Appropriate Vital Signs Temp Pulse Resp BP Pulse Ox 97.5 F L 74 18 122/65 H 98 07/02/17 03:58 07/02/17 03:58 07/02/17 03:58 07/02/17 03:58 07/02/17 03:58 Oxygen Delivery Method Room Air Weight: 98.2 kg Body Mass Index (BMI) 25.0 Intake and Output for Last 24 Hours 06/30/17 07/01/17 07/02/17 23:59 23:59 23:59 Intake Total 237 / 237 Balance 237 / 237 Assessment/Plan Active and Suspected Problems Ileus (Acute) Diarrhea (Acute) postoperative day #5 status post appendectomy with complaint of fevers, generalized body ache. Since postoperative day 1 and now diarrhea, nonspecific terminal ileum and cecal inflammation without obvious abscess on CT scan Currently, I does plan to support the patient with IV fluids. His C. difficile was negative, his laboratory studies are unremarkable except for a monocytosis. Given the degree of inflammation of the terminal ileum and cecum. I will start him on oral Flagyl and await his cultures. I have asked for consultation from hospitalist to see if they have any other ideas as to the origin of his overall body aches or any possible etiologies that at this point, our escaping me.
--- NOTE | 2017-07-02 07:08 | PCM.PROGNOTE ---
Patient Problems: Active and Suspected Problems Ileus (Acute) Diarrhea (Acute) Subjective: Patient is a 27-year-old male with a past medical history of MTHFR gene mutation and a recent history of appendectomy by Dr. Nash on 06/27/2017 who presented to the ED at [facility] on 07/01/17 with fevers, generalized myalgias and severe diarrhea. He has been afebrile since admission. Pulse rate is currently 74 with a blood pressure of 122/65 and a respiratory rate of 18. Pulse ox is 97-99% on room air. All lab was personally reviewed. White blood cell count is 7.8 with an unremarkable differentiation. Hemoglobin is 12.6 and platelets are within normal limits. Electrolytes are within normal limits and the BUN and creatinine are normal. LFTs are normal. Lipase is normal at 72. Urine analysis is negative. The CT scan shows thickening of the cecum, ascending colon and the distal ileal loops with pericolonic stranding and inflammatory changes. No drainable abscess was seen. There are fluid-filled and contrast-filled proximal small bowel loops and free fluid in the right lower quadrant and upper pelvic region. He tells me that he is having more than 15 BM's a day. He has not vomited. He has no personal hx of IBD and there is no FH of IBD. Denies blood or mucous in the stool and states it is mostly water. He is c/o fevers and shaking chills. Also c/o myalgias. No joint swelling and no red joints. No dysuria. No cough. No sore throat. - Physical Exam General: Alert, Oriented x3, Cooperative, - - He looks somewhat pale and is not moving around much but does not look toxic HEENT: Atraumatic, PERRLA, EOMI, Normocephalic Oral: Moist Mucosa Neck: Supple, No JVD, Negative Carotid Bruits, No Nodes, No Nuchal Rigidity, Trachea Midline Lungs: Clear to auscultation, No rhonchi, No wheeze, No rales, Diminished - he is not taking a deep breath, poor effort Cardiovascular: Regular rate, Regular Rhythm, Normal S1, Normal S2, No murmurs, No Ectopic Activity, No rub noted, No Gallop, - - not tachycardic Abdomen: Bowel Sounds Present, Soft, Non-Distended, Tender - in the LLQ and oin the RLQ but no guarding. no masses Extremities: No clubbing, No cyanosis, No edema, No Calf Tenderness, Peripheral Pulses Normal Skin: No rashes, No breakdown, - - incisions are healing and there is no evidence of infection Musculoskeletal: No Tenderness to Palpation of Joints or Extremities, No Muscle Wasting Lymphatic: No Cervical, Supraclavicular, or Inguinal Adenopathy Neurological: Cranial nerves II-XII grossly intact, Neuro grossly intact Psych/Mental Status: Appropriate, Flat Affect Vital Signs Temp Pulse Resp BP Pulse Ox 97.5 F L 74 18 122/65 H 98 07/02/17 03:58 07/02/17 03:58 07/02/17 03:58 07/02/17 03:58 07/02/17 03:58 Oxygen Delivery Method Room Air Weight: 216 lb 7.903 oz Body Mass Index (BMI) 25.0 Intake and Output for Last 24 Hours 06/30/17 07/01/17 07/02/17 23:59 23:59 23:59 Intake Total 237 / 237 Balance 237 / 237 Medical Necessity - Tobacco Use Smoking Status: Never smoker Assessment/Plan Active and Suspected Problems Ileus (Acute) Diarrhea (Acute) Impressions 1. diarrhea associated with myalgias, fevers and shaking chills in a pt who is 5 days post op appy - viral? No abscess on CT of the abd and the pelvis. He is not toxic appearing and WBC and diff are unremarkable. Has not had a fever in the hospital. He tells me he is having BM's every hour but lab and PE not consistent with dehydration? Has not needed anything other than Tylenol for pain. Enteric pathogen panel is negative and the fecal leuko's drawn in Dr. Davila's office yesterday are normal. No hx of IBD. 2. 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 W/U so far has not revealed an etiology of his sx. Will get a CTA of the abdomen and pelvis to r/o ischemic bowel due to MTHFR mutation which is associated with thrombosis. discussed with Dr. Davila and then with Dr. Lobo. Code Visit Inpatient E&M: 08146 Subs Hosp L3
[2017-07-02] MEDS: Acetaminophen 325 MG Tablet PO (08:45)
[2017-07-02] MEDS: Ibuprofen 400 MG Tablet PO (12:52)
[2017-07-02] MEDS: 0.9% NaCl Peripheral Flush Adult/Peds IV (12:53)
--- NOTE | 2017-07-02 13:47 | CT_ITS ---
STUDY: CT ABDOMEN AND PELVIS WITH CONTRAST REASON FOR EXAM: Male, 27 years old. Recent appendectomy. Possible ischemic colitis or vessel injury. RADIATION DOSAGE (If Supplied By Facility): CTDIvol = ( 25.42 ) mGy, DLP = ( 881.81 ) mGycm TECHNIQUE: Transaxial images were obtained from the dome of the diaphragm to the symphysis pubis without oral contrast. 100 ml of Isovue 300 contrast was administered. Sagittal and coronal images were reconstructed. Individualized dose optimization techniques were used for this CT. COMPARISON: Comparison is made with prior study done earlier today. FINDINGS: Mild degree of dependent bibasilar atelectasis. The visualized portions of the heart are within normal limits. Normal liver. Normal gallbladder and extrahepatic biliary system. Normal spleen. There is evidence of perisplenic fluid. Normal pancreas. Normal bilateral adrenal glands. Normal right kidney. Normal left kidney. Normal visualized stomach. Fluid within nondilated small bowel loops. Fluid-filled colon. Scattered sigmoid diverticula. There are surgical clips in the region of the appendix consistent with a prior appendectomy. Increased markings are seen in the right lower quadrant in keeping with prior recent appendectomy. Small amount of free fluid is seen in the cul-de-sac. No abscess collection is seen. Normal abdominal aorta. Normal inferior vena cava. Normal retroperitoneum. Normal urinary bladder. Normal abdominal wall. Normal osseous structures. CT/CT ANGIO ABD&PEL W/O&W/DYE IMPRESSION: Findings suggestive of mild degree of ileus pattern. No definite colitis is seen. No vascular injury is present. Small amount of perisplenic fluid and fluid in the cul-de-sac. Postsurgical changes in the right lower quadrant secondary to prior appendectomy. Electronically Signed: Florin Leos MD at 15:23 EDT Tel [phone], Service support ,
[2017-07-02 22:42] LABS: Erythrocyte Sedimentation Rate 51 mm/hr (0-15)
--- NOTE | 2017-07-02 22:45 | CT_ITS ---
STUDY: CT ABDOMEN AND PELVIS WITHOUT CONTRAST REASON FOR EXAM: Male, 27 years old. Post appendectomy. Fever, chills and diarrhea. RADIATION DOSAGE (If Supplied By Facility): CTDIvol = ( 11.96 ) mGy, DLP = ( 696.50 ) mGycm TECHNIQUE: Transaxial images were obtained from the dome of the diaphragm to the symphysis pubis without oral contrast, and without intravenous contrast. Sagittal and coronal images were reconstructed. Individualized dose optimization techniques were used for this CT. COMPARISON: None. FINDINGS: The visualized lung bases are unremarkable. The visualized portions of the heart are within normal limits. Normal liver. Normal gallbladder and extrahepatic biliary system. Normal spleen. Normal pancreas. Normal bilateral adrenal glands. Normal right kidney. Normal left kidney. The stomach is suboptimally distended. There are fluid-filled and contrast-filled proximal small bowel loops. There is thickening of the distal radial loops and the terminal ileum. There is thickening of the cecum and ascending colon with pericolonic stranding and inflammatory changes. There is diverticulosis of the sigmoid colon with mild thickening of the colon probably due to underdistention. There are surgical clips in the region of the appendix consistent with a prior appendectomy. There is fluid in the right lower quadrant and upper pelvic region surrounding the distal small bowel loops. Normal abdominal aorta. Normal inferior vena cava. Normal retroperitoneum. The bladder is not well-distended. There is mild free fluid in the pelvis. Normal abdominal wall. Normal osseous structures. CT/Abdomen/Pel W ORAL Cont Only IMPRESSION: Status post appendectomy. Thickening of the cecum, ascending colon and the distal ileal loops with pericolonic stranding and inflammatory changes which could represent postoperative changes. Early infectious process cannot be excluded. No drainable abscess is seen. Fluid-filled and contrast-filled proximal small bowel loops probably due to ileus. Free fluid in the right lower quadrant and upper pelvic region. Diverticulosis of the sigmoid colon. Follow-up examination is recommended clinically indicated. Electronically Signed: Kenneth Barraza MD at 2:01 EDT Tel , Service support ,
[2017-07-03 04:00] VITALS: BP 123/66; PULSE 63; RESP 16; TEMP 36.8; O2SAT 100
[2017-07-03] MEDS: metroNIDAZOLE 500 MG Tablet PO ×3 (05:47→23:06)
[2017-07-03] MEDS: Lactated Ringers 1,000 ML 75 ML IV ×2 (05:47→18:43)
[2017-07-03 09:17] VITALS: BP 118/73; PULSE 69; RESP 18; TEMP 37; O2SAT 98
[2017-07-03] MEDS: Dicyclomine 10 MG Capsule 20 MG PO ×2 (09:45→15:02)
--- NOTE | 2017-07-03 10:01 | PCM.PN.SRG ---
Subjective: patient still complaining of loose stools and crampy abdominal pain - but improving feels hungry - Physical Exam General: Alert, Oriented x3 Oral: Moist Mucosa Neck: Supple Abdomen: Bowel Sounds Present, Soft, - - dressings intact, with no seepage, no surrounding erythema Vital Signs Temp Pulse Resp BP Pulse Ox 98.6 F 69 18 118/73 98 07/03/17 09:17 07/03/17 09:17 07/03/17 09:17 07/03/17 09:17 07/03/17 09:17 Oxygen Delivery Method Room Air Weight: 98.2 kg Body Mass Index (BMI) 25.0 Intake and Output for Last 24 Hours 07/01/17 07/02/17 07/03/17 23:59 23:59 23:59 Intake Total 2561 / 2561 2065 Balance 2561 / 2561 2065 Microbiology Past 72 Hours 07/02/17 21:05 Respiratory Panel (PCR) - Final Mucosa - Nasopharyngeal 07/02/17 21:05 Influenza Types A,B Direct FA (CLAIRE) - Final Mucosa - Nasopharyngeal 07/02/17 08:50 Enteric Bacteriology - Final Stool Laboratory Tests Past 24 Hrs 07/02/17 07/02/17 22:15 22:15 ESR 51 H C-React Prot Ext Range 149.00 H Medical Necessity - Tobacco Use Smoking Status: Never smoker Assessment/Plan Impression: s/p laparoscopic appendectomy Plan/discussion: still with abdominal pain and loose stools - will trial full liquid diet and bentyl all studies have been negative thus far awaiting patient's symptoms to sariah for consideration of discharge.
--- NOTE | 2017-07-03 13:37 | CM.UR ---
NEY CM status review for OBS > 1 day. The patient continues to have abdominal cramping and diarrhea, started on Bentyl today. Per physician report, patient is improved since admission and Dr. Moncada increased his diet to full liquids. Patient is improved since admission, anticipate discharge 07/04, if patient continues to improve. Continue observation services. JAMES DormanN, RN-BC, CCM
[2017-07-03 14:43] VITALS: BP 110/66; PULSE 55; RESP 16; TEMP 37.3; O2SAT 98
--- NOTE | 2017-07-03 18:03 | PCM.PROGNOTE ---
Patient Problems: Active and Suspected Problems Ileus (Acute) Diarrhea (Acute) Subjective: Patient seen and examined today, I talked extensively with his mother and the patient today, he still having some diarrhea, I placed him on Bentyl today after talking with surgery. Patient requests that his diet be advanced to regular diet this afternoon. - Physical Exam General: Alert, Oriented x3, Cooperative, No apparent distress, Well developed HEENT: Atraumatic, PERRLA, EOMI, Normocephalic Oral: Moist Mucosa Neck: Supple, Trachea Midline, Thyroid Normal Size and Texture Lungs: Clear to auscultation, Normal air movement, No rhonchi, No wheeze, No rales Cardiovascular: Regular rate, Regular Rhythm, Normal S1, Normal S2, No murmurs, No Ectopic Activity, PMI Normal, No rub noted, No Gallop Abdomen: Bowel Sounds Present, Soft, Non Tender, Non-Distended, No hernias noted Extremities: No clubbing, No cyanosis, Capillary Refill Less than 3 Seconds Skin: No rashes, No breakdown Musculoskeletal: No Muscle Wasting Neurological: Cranial nerves II-XII grossly intact, Neuro grossly intact, Sensory exam intact to light touch and pain, Coordination normal Psych/Mental Status: Normal Affect, Appropriate, Alert and oriented to time, place, person, mood and affect Vital Signs Temp Pulse Resp BP Pulse Ox 99.2 F H 55 L 16 110/66 98 07/03/17 14:43 07/03/17 14:43 07/03/17 14:43 07/03/17 14:43 07/03/17 14:43 Oxygen Delivery Method Room Air Weight: 98.2 kg Body Mass Index (BMI) 25.0 Intake and Output for Last 24 Hours 07/01/17 07/02/17 07/03/17 23:59 23:59 23:59 Intake Total 2561 / 2561 4007 / 4007 Output Total 5 / 5 Balance 2561 / 2561 4002 / 4002 Microbiology Past 72 Hours 07/02/17 21:05 Respiratory Panel (PCR) - Final Mucosa - Nasopharyngeal 07/02/17 21:05 Influenza Types A,B Direct FA (CLAIRE) - Final Mucosa - Nasopharyngeal 07/02/17 08:50 Enteric Bacteriology - Final Stool Laboratory Tests Past 24 Hrs 07/02/17 07/02/17 22:15 22:15 ESR 51 H C-React Prot Ext Range 149.00 H Medical Necessity - Tobacco Use Smoking Status: Never smoker Assessment/Plan Active and Suspected Problems Ileus (Acute) Diarrhea (Acute) #1 diarrhea-etiology unclear at this point, diet will be advanced and patient will be kept on Bentyl for now, all the patient's stool cultures have been negative for pathogens Code Visit Inpatient E&M: 39241 Subs Hosp L2
[2017-07-03 22:02] VITALS: BP 113/69; PULSE 61; RESP 16; TEMP 37.3; O2SAT 100
[2017-07-03] MEDS: Acetaminophen 325 MG Tablet PO (23:06)
[2017-07-04] MEDS: Dicyclomine 10 MG Capsule 20 MG PO (06:17)
[2017-07-04] MEDS: metroNIDAZOLE 500 MG Tablet PO (06:17)
[2017-07-04] MEDS: Lactated Ringers 1,000 ML 75 ML IV (06:17)
[2017-07-04 08:30] VITALS: BP 114/69; PULSE 62; RESP 16; TEMP 37; O2SAT 100
--- NOTE | 2017-07-04 09:17 | PCM.DC ---
- Discharge Diagnoses Current Active Problems: Current Active and Chronic Problems Ileus (Acute) Diarrhea (Acute) You will use the following diet at home:: No restrictions Your food should be the consistency of: Regular Your liquids should be the consistency of: Regular/Thin Discharge Activity: Return to Normal Activity Weight Bearing Status: Full weight bearing Allergies/Adverse Reactions: Allergies shellfish derived Adverse Reaction (Verified 07/01/17 22:12) Nausea/Vom/Diarrhea Medications to take at Discharge [place]-3 Fatty Acids/Fish Oil [Fish Oil 1,000 mg Capsule] 1 each PO DAILY 06/27/17 Ibuprofen [Motrin] 400 mg PO Q4H PRN PRN tablet 06/28/17 Oxycodone [Oxyir] 5 mg PO Q4H PRN PRN 7 Days #20 tab 06/28/17 Dicyclomine HCl [Bentyl] 20 mg PO TIDAC #30 cap 07/04/17 Metronidazole [Flagyl] 500 mg PO TID #15 tab 07/04/17 The following prescriptions were given: Dicyclomine HCl [Bentyl] 20 mg PO TIDAC #30 cap Metronidazole [Flagyl] 500 mg PO TID #15 tab Primary Care Physician: Buck Rouse MD [Primary Care Provider] - Please follow up with your Primary Care Physician in: as directed Please Follow Up With: Spenser Davila MD When: as directed
[2017-07-04 09:33] VITALS: BP 114/69; PULSE 62; RESP 16; TEMP 37; O2SAT 100
--- NOTE | 2017-07-04 21:04 | PCM.DC.SUM ---
Discharge Date and Diagnosis Date of Admission: 07/02/17 Date of Discharge: 07/04/17 - Primary Discharge Diagnosis #1 viral gastroenteritis Hospital Course and Treatment Procedures: None Summary of Care Provided: The patient is a 27 year old M who was seen in the emergency room at [facility] with complaints of intermittent fevers ?4 days and diarrhea which was described as watery. He had undergone an appendectomy 4 days prior. Evaluation in the emergency room included a CT of the abdomen and pelvis which showed evidence of a possible ileus, postsurgical inflammatory changes of the cecum and ascending colon and distal ileum was noted. There is no abscess noted. Patient was given IV fluids, labs were unremarkable. Surgery was contacted and the patient was placed into observation status for IV fluids and evaluation. Stool cultures were performed and these did not show any pathogens. Patient was maintained on Cipro and Flagyl. Patient's diarrhea lessened during his hospital stay, he was placed on Bentyl and was finally able to tolerate a regular diet. It was felt by this examiner the patient probably had viral gastroenteritis. On 07/04/17, patient was seen and examined felt in stable condition for discharge home Discharge Activity: Return to Normal Activity Weight Bearing Status: Full weight bearing Home Medications: Medications to take at Discharge [place]-3 Fatty Acids/Fish Oil [Fish Oil 1,000 mg Capsule] 1 each PO DAILY 06/27/17 Ibuprofen [Motrin] 400 mg PO Q4H PRN PRN tablet 06/28/17 Oxycodone [Oxyir] 5 mg PO Q4H PRN PRN 7 Days #20 tab 06/28/17 Dicyclomine HCl [Bentyl] 20 mg PO TIDAC #30 cap 07/04/17 Metronidazole [Flagyl] 500 mg PO TID #15 tab 07/04/17 Following Prescrptions Were Given to Patient: Dicyclomine HCl [Bentyl] 20 mg PO TIDAC #30 cap Metronidazole [Flagyl] 500 mg PO TID #15 tab Primary Care Physician: Buck Rouse MD [Primary Care Provider] - Please follow up with your Primary Care Physician in: as directed Please Follow Up With: Spenser Davila MD When: as directed Disposition: Home Minutes spent on discharge:: 25 Patient Condition:: Stable Medical Necessity - Tobacco Use Smoking Status: Never smoker Meaningful Use Info Meaningful Use Diagnoses (Choose all that apply): None applicable Code Visit OBSV E&M: 30235 Observation care discharge
--- NOTE | 2017-07-04 21:08 | DS.PCM_ITS ---
Discharge Date and Diagnosis Date of Admission: 07/02/17 Date of Discharge: 07/04/17 - Primary Discharge Diagnosis #1 viral gastroenteritis Hospital Course and Treatment Procedures: None Summary of Care Provided: The patient is a 27 year old M who was seen in the emergency room at [facility] with complaints of intermittent fevers ?4 days and diarrhea which was described as watery. He had undergone an appendectomy 4 days prior. Evaluation in the emergency room included a CT of the abdomen and pelvis which showed evidence of a possible ileus, postsurgical inflammatory changes of the cecum and ascending colon and distal ileum was noted. There is no abscess noted. Patient was given IV fluids, labs were unremarkable. Surgery was contacted and the patient was placed into observation status for IV fluids and evaluation. Stool cultures were performed and these did not show any pathogens. Patient was maintained on Cipro and Flagyl. Patient's diarrhea lessened during his hospital stay, he was placed on Bentyl and was finally able to tolerate a regular diet. It was felt by this examiner the patient probably had viral gastroenteritis. On 07/04/17, patient was seen and examined felt in stable condition for discharge home Discharge Activity: Return to Normal Activity Weight Bearing Status: Full weight bearing Home Medications: Medications to take at Discharge [place]-3 Fatty Acids/Fish Oil [Fish Oil 1,000 mg Capsule] 1 each PO DAILY Ibuprofen [Motrin] 400 mg PO Q4H PRN PRN tablet 06/28/17 Oxycodone [Oxyir] 5 mg PO Q4H PRN PRN 7 Days #20 tab 06/28/17 Dicyclomine HCl [Bentyl] 20 mg PO TIDAC #30 cap 07/04/17 Metronidazole [Flagyl] 500 mg PO TID #15 tab 07/04/17 Following Prescrptions Were Given to Patient: Dicyclomine HCl [Bentyl] 20 mg PO TIDAC #30 cap Metronidazole [Flagyl] 500 mg PO TID #15 tab Primary Care Physician: Buck Rouse MD [Primary Care Provider] - Please follow up with your Primary Care Physician in: as directed Please Follow Up With: Spenser Davila MD When: as directed Disposition: Home Minutes spent on discharge:: 25 Patient Condition:: Stable Medical Necessity - Tobacco Use Smoking Status: Never smoker Meaningful Use Info Meaningful Use Diagnoses (Choose all that apply): None applicable Code Visit OBSV E&M: 48829 Observation care discharge
== END 2017-07-04 09:53 | disposition home or self-care (01) ==
LOC: ED 07-02 00:40 → MS3 07-02 03:35
PROVIDERS: Emergency Medicine; Internal Medicine; Admitting Provider Surgery; Emergency Provider Emergency Medicine; Family Provider Family Medicine; PCP Family Medicine; Visit Provider Internal Medicine
DX: A08.4 Viral intestinal infection, unspecified (principal); E72.12 Methylenetetrahydrofolate reductase deficiency; Z98.890 Other specified postprocedural states; K56.7 Ileus, unspecified
CPT/HCPCS: 36415; 74174; 74176; 80053; 81001; 83690; 85025; 85652; 86140; 87086; 87506; 87633; 87804; 96360; 96361; 97802; 99218; 99282; J7030; J7120; Q9967; A4216; G0378

== ENCOUNTER → 2017-07-24 08:33 | Outpatient (CLI) | payer OTHER, SELFPAY ==
[2017-07-24 09:09] LABS: Hemoglobin 12.5 g/dl (13.0-16.5)
[2017-07-24 09:29] LABS: Glucose 100 mg/dL (74-106)
== END ==
PROVIDERS: Family Provider Family Medicine; PCP Family Medicine; Visit Provider Family Medicine
DX: E16.2 Hypoglycemia, unspecified (principal); D64.9 Anemia, unspecified
CPT/HCPCS: 36415; 82947; 85014; 85018

== ENCOUNTER → 2017-08-13 15:48 | Outpatient (CLI) | payer OTHER, SELFPAY ==
[2017-08-13 17:07] LABS: Absolute Lymphocyte Count 1.75 X10^3/ul (0.83-4.51); Absolute Neutrophil Count 4.5 X10^3/uL (2.0-7.7); Basophil# 0.05 X10^3/uL; Basophil% 0.7 % (0-1); Eosinophil# 0.06 X10^3/uL; Eosinophils% 0.9 % (0-5); Hematocrit 40.6 % (40-54); Lymphocyte # 1.75 X10^3/ul (4.0); Lymphocyte % 25.6 % (19-41); Mean Corp Hgb Conc 34.5 g/gl (32-36); Mean Corpuscular Hgb 29.7 pg (27.0-32.0); Mean Platelet Vol. 8.8 fl (6.2-12.0); Monocyte# 0.43 X10^3/uL; Monocyte% 6.3 % (0-10); Neutrophil # 4.53 X10^3/uL (2.7-7.7); Neutrophil % 66.4 % (47-70); Platelet Count 329 K/mm3 (150-450); RBC Distribution Width CV 12.9 % (11.6-14.6); RBC Distribution Width SD 39.8 fl (35.1-43.9); Red Blood Count 4.72 M/mm3 (4.6-6.2); White Blood Count 6.8 K/mm3 (4.4-11.0)
[2017-08-13 17:14] LABS: POSITIVE COUNT NO; POSITIVE DIFFERENTIAL NO; POSITIVE MORPHOLOGY NO
[2017-08-13 17:22] LABS: Erythrocyte Sedimentation Rate 10 mm/hr (0-15)
[2017-08-13 17:46] LABS: CRP < 2.90 mg/L (0.0-3.0)
== END ==
PROVIDERS: Family Provider Family Medicine; PCP Family Medicine; Visit Provider Surgery
DX: R10.9 Unspecified abdominal pain (principal)
CPT/HCPCS: 36415; 85025; 85652; 86140

== ENCOUNTER → 2017-09-07 16:09 | Outpatient (CLI) | payer OTHER, SELFPAY ==
--- NOTE | 2017-09-07 16:13 | RAD_ITS ---
STUDY: X-RAY - LEFT HAND, ATTENTION FINGER REASON FOR EXAM: Male, 27 years old. Thumb pain TECHNIQUE: 3 view(s) of the finger were obtained. COMPARISON: None. FINDINGS: Normal metacarpal head. Normal metacarpophalangeal joint. Normal proximal phalanx. Normal middle phalanx. Normal distal phalanx. Normal proximal interphalangeal joint. Normal distal interphalangeal joint. RAD/Finger(s) Min 2 Views IMPRESSION: Normal x-ray examination of the finger. No fracture. No bone or joint disease Electronically Signed: Hardy Gilmore, at 2:34 EDT Tel , Service support ,
== END ==
PROVIDERS: Family Provider Family Medicine; PCP Family Medicine; Visit Provider Family Medicine
DX: S63.602A Unspecified sprain of left thumb, initial encounter (principal)
CPT/HCPCS: 73140

== ENCOUNTER 2017-09-26 15:07 | Emergency (ER) | payer OTHER, SELFPAY ==
[2017-09-26 15:07] VITALS: BP 155/90; PULSE 83; RESP 20; TEMP 36.8; O2SAT 100; BMI 26.1
--- NOTE | 2017-09-26 15:29 | EKG12_ITS ---
Test Reason : NUMBNESS/TING Blood Pressure : / mmHG Vent. Rate : 078 BPM Atrial Rate : 078 BPM P-R Int : 160 ms QRS Dur : 104 ms QT Int : 386 ms P-R-T Axes : 064 075 035 degrees QTc Int : 440 ms Normal sinus rhythm Normal ECG Confirmed by ELIAZAR BUSH, RAQUEL ([id number]), movie editor SILAS MCCORMACK ([id number]) on 09/30/2017 1:05:46 PM Referred By: ZOHAIB Confirmed By:RAQUEL PEREA MD
[2017-09-26] MEDS: 0.9% Normal Saline 1,000 ML 1000 ML IV (15:38)
[2017-09-26 15:41] VITALS: BP 127/81; PULSE 75; RESP 16; O2SAT 100
--- NOTE | 2017-09-26 15:45 | RAD_ITS ---
STUDY: X-RAY CHEST REASON FOR EXAM: Male, 27 years old. Numbness TECHNIQUE: Frontal and lateral views of the chest. COMPARISON: None. FINDINGS: The lungs are clear and expanded. There is no demonstrated pleural abnormality. Normal size heart. Normal mediastinum and carlos. Normal visualized pulmonary arteries. Normal visualized aortic arch and descending thoracic aorta. Normal visualized thoracic spine. Normal visualized ribs, clavicles, and shoulders. There is no demonstrated abnormality of the visualized soft tissue structures of the upper abdomen. RAD/Chest PA and Lateral IMPRESSION: Normal x-ray examination of the chest. Electronically Signed: Fareed Ye MD at 16:37 EDT , Service support ,
[2017-09-26 15:46] LABS: Absolute Lymphocyte Count 1.05 X10^3/ul (0.83-4.51); Absolute Neutrophil Count 3.6 X10^3/uL (2.0-7.7); Basophil# 0.04 X10^3/uL; Basophil% 0.8 % (0-1); Eosinophil# 0.06 X10^3/uL; Eosinophils% 1.2 % (0-5); Hematocrit 38.9 % (40-54); Hemoglobin 13.9 g/dl (13.0-16.5); Lymphocyte # 1.05 X10^3/ul (4.0); Lymphocyte % 20.5 % (19-41); Mean Corp Hgb Conc 35.7 g/gl (32-36); Mean Corpuscular Hgb 30.2 pg (27.0-32.0); Mean Corpuscular Volume 84.4 fL (80-94); Mean Platelet Vol. 8.7 fl (6.2-12.0); Monocyte% 7.8 % (0-10); Neutrophil # 3.57 X10^3/uL (2.7-7.7); Neutrophil % 69.7 % (47-70); Platelet Count 244 K/mm3 (150-450); RBC Distribution Width CV 12.7 % (11.6-14.6); RBC Distribution Width SD 38.8 fl (35.1-43.9); Red Blood Count 4.61 M/mm3 (4.6-6.2); White Blood Count 5.1 K/mm3 (4.4-11.0)
[2017-09-26 15:47] LABS: POSITIVE COUNT NO; POSITIVE DIFFERENTIAL NO; POSITIVE MORPHOLOGY NO
[2017-09-26 16:05] LABS: D-Dimer Quantitative (DVT/PE) < 0.27 FEU/ug/m (0.27-0.49)
[2017-09-26 16:07] LABS: Anion Gap 9 (5-15); BUN 15 mg/dL (7-18); BUN/Creat Ratio 15.3 RATIO (10-20); Calcium,Total 9.1 mg/dL (8.5-10.1); Chloride 101 mmol/L (98-107); Creatinine, Serum 0.98 mg/dL (0.70-1.30); EST Glomerular Filtration Rate 96 mL/min (>60); Est Glom Filt Rate - Afr Amer 117 mL/min (>60); Estimated Creatinine Clearance 137.78 ml/min; Glucose 144 mg/dL (74-106); Potassium 3.5 mmol/L (3.5-5.1); Sodium Level 137 mmol/L (136-145)
--- NOTE | 2017-09-26 16:08 | ED.DCSUM_ITS ---
- ER Visit Summary Date of Service: 09/26/17 Chief Complaint: Lightheadedness and shortness of breath History of Present Illness: The patient is a 27 M presenting for evaluation secondary to lightheadedness and shortness of breath. Patient reports that he just got home from a bike ride today, reports that shortly afterwards he had a sudden onset of feeling very lightheaded short of breath and feeling tingling in his bilateral hands and feet. He states that it is associated with a feeling of chest tightness. Patient does not report that there is any sort of real exacerbating relieving factors but simply feels as if he cannot get enough air. Patient states that he has had a relatively complicated spring and early summer and that he had an appendectomy on 415 that was complicated by a infection and a subsequent hernia. Patient states that he has been relatively sedentary through that time and is concerned that he has a blood clot. He reports that he has feelings of cramping in his calves bilaterally right being worse than left. He denies any hemoptysis. Patient denies any personal or family history of cardiac arrhythmias. No drug use. No high caffeine use. Review of systems otherwise negative. Physical Examination: Vital signs are within normal limits, patient is afebrile. General: Patient is well-nourished well-developed and in no acute distress. Head: Normocephalic, atraumatic Eyes: Pupils equal round and reactive bilaterally, extra occular motion intact bialterally ENT: Moist mucous membranes Neck: Supple, no lymphadenopathy, no JVD, no meningismus CVS: Heart regular rate and rhythm, no murmurs, rubs or gallops, radial pulses 2 + bilaterally Resp: Respirations nondistressed, lung sounds clear bilaterally Abdomen: Soft, nontender, nondistended, no palpable masses, normal bowel sounds Back: Nontender Extremities: Nontender, atraumatic, active full range of motion, no peripheral edema Skin: warm, no rashes, no petechia Neuro: Alert and oriented x 4, CN 2-12 intact, no lateralizing neurological defecits Psyc: Normal affect Test Results: EKG shows sinus rhythm at [address] segments normal T waves, normal MD and QTc intervals, no evidence of WPW or Brugada morphology. CBC unremarkable, chemistry within normal limits, troponin negative, d-dimer negative, TSH normal, chest x-ray per radiology unremarkable Emergency Department Course and Treatment: Patient presented secondary to shortness of breath and feelings of dizziness after exertion. Patient did have a surgery within the last 3 months of there was at least some concern for the possibility of blood clot workup was obtained. Workup is negative as noted above including d-dimer troponin EKG chemistries thyroid and blood counts. Patient was given a liter normal saline and did have improvement. At this point the patient would seem that he was may be either deconditioned versus dehydrated, and that was likely the cause of his symptoms. I see no utility in admitting the patient to the hospital for further workup. Patient was counseled on this, will follow up with primary care as needed. Disposition: Discharge Impression: 1. Dehydration This note was generated with [employer] dictation software. It may contain incorrect words, spelling, and punctuation that were not noted in review of the chart prior to signing ED Disposition - Plan for ED Patient: Disposition: Home or Assisted Living Chief Complaint: Numb/Ting Diagnosis: Dehydration after exertion Instructions: ED Dehydration Referrals: Buck Rouse MD [Primary Care Provider] - 1 Week
[2017-09-26 17:02] VITALS: BP 116/66; PULSE 59; RESP 18; O2SAT 99
[2017-09-26 17:43] VITALS: BP 121/69; PULSE 57; RESP 18; O2SAT 97
--- NOTE | 2017-09-26 17:43 | ED.RN ---
PT GIVEN WRITTEN AND VERBAL DISCHARGE INSTRUCTIONS. PT VERBALIZES UNDERSTANDING. PT EDUCATED ON HOW TO STAY HYDRATED AT HOME. PT DENIES ANY FURTHER QUESTIONS. IV D/C AND COVERED WITH 2X2 GAUZE DRESSING AND PAPER TAPE. MINIMAL BLEEDING NOTED. PT SIGNS RELEASE AND GIVEN REQUESTED LAB WORK. PT AMBULATES OUT OF DEPT. WITH PARENTS.
== END 2017-09-26 17:47 | disposition home or self-care (01) ==
PROVIDERS: Emergency Provider Emergency Medicine; Family Provider Family Medicine; PCP Family Medicine
DX: E86.0 Dehydration (principal); R20.0 Anesthesia of skin
CPT/HCPCS: 71046; 80048; 84443; 84484; 85025; 85379; 93005; 99284; J7030

== ENCOUNTER 2017-11-01 07:30 | Day surgery (SDC) | payer OTHER, SELFPAY ==
[2017-11-01 08:19] VITALS: BP 121/81; PULSE 56; RESP 18; TEMP 36.6; O2SAT 100; BMI 24.5
--- NOTE | 2017-11-01 09:50 | HERN_PTH ---
PATIENT: MAYANK LINDO LOC: [facility] [place] U#:[id number] AGE/SX: 27/M ROOM: RE11/01/[address]: Dr. Alexander Oakley MD : 1990 BED: DIS: 11/01/2017 SPEC #: [id number] RECD: 11/01/17 12:52 STATUS: ARIAS DAVE #: [id number] JOSE: 11/01/17 09:[address]: Alexander Oakley DEPT: SURGICAL PATHOLOGY RECD BY: Spenser Harrison ENTERED: 11/01/17 13:02 SP TYPE: Hernia OTHR DR: Dr. Buck Rouse MD Tissues: HERNIA Procedures: Surgery Specimen Level II HEADER OPERATION: Hernia, inguinal with mesh PRE-OP DIAGNOSIS: Right inguinal hernia TISSUE SUBMITTED: Hernia sac and contents MICROSCOPIC DIAGNOSIS Hernia sac and contents: Mesothelial-lined fibroadipose and fibroconnective tissue, consistent with hernia sac. SJ:manju 11/02/17 MICROSCOPIC DESCRIPTION Slides are reviewed. GROSS DESCRIPTION Received in fixative is one container labeled with the patient's name and designated hernia sac and contents. The specimen consists of a piece of pink fibromembranous sac measuring 3 cm in length and up to 1.5 cm in diameter. Sections do not reveal any mass lesion. Hide Splitter sections are submitted in one cassette. / SJ:manju 11/01/17 TC:5 CPT: 55504
[2017-11-01] MEDS: Cefazolin 2 GM in 0.9% Normal Saline 100 ML IV (10:26)
--- NOTE | 2017-11-01 10:28 | PCM.DC.GS ---
Discharge Diet: Light diet - advance as tolerated - if you have questions about your diet instructions, please talk to you doctor. Discharge Activity: May Not Drive - for 1 week or while taking narcotic pain medicine. May shower in (days): 1 Lifting Restrictions: 10 pounds Call your doctor if your incision/area has: Continuous Slow Oozing, Sudden Increased Bleeding, Increased Pain/ Swelling, Increased Redness, Foul Smelling Discharge Call your doctor if you observe: Fever of 101 or Higher Suture Line Care: Avoid Pulling/Pushing, Avoid Pinching/Bending Additional Dressing/Incision Instructions:: Change or remove dressing in 4 days. Leave steri-strips in place for 1 week. Allergies/Adverse Reactions: Allergies shellfish derived Adverse Reaction (Verified 11/01/17 08:17) Nausea/Vom/Diarrhea Medications to take at Discharge Bifidobacterium infantis 1.5 billion cell capsule 4 mg PO QDAY 08/13/17 Cholecalciferol (Vitamin D3) [Vitamin D3] 2,000 unit PO DAILY 09/26/17 Watrous's wort 1,000 mg capsule 1,000 mg PO QDAY 10/25/17 Black [place] Pollen 2 capsule PO DAILY 10/26/17 traMADol [Ultram] 50 mg PO Q6H PRN PRN #10 tablet 11/01/17 The following prescriptions were given: traMADol [Ultram] 50 mg PO Q6H PRN PRN #10 tablet PRN Reason: Pain Primary Care Physician: Buck Rouse MD [Primary Care Provider] - Test Results: Test results from this visit will be discussed in further detail at your follow-up appointment, if applicable. Please Follow Up With: Alexander Oakley MD - [phone] When: Call to make an appointment to be seen in about 10 days.
[2017-11-01] MEDS: Bupivacaine 0.5% PF 10 ML VIAL ×2 (10:40)
--- NOTE | 2017-11-01 11:29 | PCM.OPRPT ---
Problem List (1) Inguinal hernia Status: Acute Qualifiers: Obstruction and gangrene presence: without obstruction or gangrene Laterality: unilateral Recurrence: non-recurrent Qualified Code(s): K40.90 - Unilateral inguinal hernia, without obstruction or gangrene, not specified as recurrent Report of Operation Date of Procedure: 11/01/17 Pre-Operative Diagnosis: Indirect right inguinal hernia Post-Operative Diagnosis: Same Surgery/Procedure Performed:: Sneha right inguinal herniorrhaphy Description of Surgical Findings:: Timeout and informed consent was obtained. 27-year-old gent was taken out from placement table. Underwent monitored anesthesia care. Ancef 2 g are given intravenous preoperatively. The right groin was sterilely prepped and draped. 1% lidocaine mixed 50-50 with 0.5% Marcaine was used as local anesthetic. Throughout the procedure total 30 cc was used. Local was instilled. A transverse incision was created. Sharp dissection carried down through the substance tissue. Hiral stated electrocautery. Crossing vein was secured with 3-0 Vicryl ligature. Dissection performed down to the external oblique. The external oblique was incised along its fascia. The ileal nerve was identified and carefully protected. Circumferential control was obtained of the cord structures. A Timmy drain was placed. Sharp and blunt dissection was used to identify the internal hernia sac. This was dissected free. Dissected free all the way to the internal ring. It was then twisted high ligated with 3-0 Vicryl portion was amputated and sent for specimen as a risk was allowed to retract. Dissection was performed overlying the pubic tubercle so that the direct and indirect area was well visualized. The transversalis fascia was approximated from the pubic tubercle to the internal ring with a running imbricating 3-0 Ethibond. Then a Bard mesh appreciate was placed around the cord structures carefully protecting the ileal nerve. The mesh was secured to itself laterally with 3-0 Ethibond. The tails were trimmed to length and placed beneath the external oblique. The mesh was secured to the pubic tubercle shelving edge of Poupart's and aponeurosis of the internal/external oblique with multiple interrupted 3-0 Ethibond sutures. Excellent positioning was felt to been achieved with a nice flat lie. The external oblique was approximated running 3-0 Vicryl leaving the external ring opened for palpation. Some subdermal tissues were approximated with interrupted 3-0 Vicryl. The skin edges were approximated running septic or 4-0 Monocryl. Steri-Strips Telfa OpSite dressings applied. Sponge and instrument and needle counts were reported to the surgeon to be correct. Blood loss was minimal. Specimens hernia sac. Drains none. Blood loss minimal. Bard mesh preshaped keyhole lot number [id number]. Reference #[id number]. Expiry date 12/17/2021 Alexander Oakley M.D., F.A.C.S. Type of Anesthesia:: Local MAC Anesthesiologist: Daryl Witt
[2017-11-01 11:39] VITALS: BP 121/81; BP 92/55; PULSE 49; RESP 16; TEMP 36.6; O2SAT 93
[2017-11-01 11:40] VITALS: BP 121/81; BP 96/52; PULSE 51; RESP 18; O2SAT 92
[2017-11-01 11:44] VITALS: BP 121/81; BP 95/57; PULSE 60; RESP 18; O2SAT 93
[2017-11-01 11:52] VITALS: BP 105/64; BP 121/81; PULSE 67; RESP 18; TEMP 36.5; O2SAT 94
[2017-11-01] MEDS: traMADol 50 MG Tablet PO ×2 (12:12→12:51)
[2017-11-01 13:17] VITALS: BP 113/81; BP 121/81; PULSE 40; RESP 14; TEMP 36.5; O2SAT 100
== END 2017-11-01 13:20 | disposition home or self-care (01) ==
LOC: SDC 07:31 → AC 07:32
PROVIDERS: Family Provider Family Medicine; PCP Family Medicine; Visit Provider Surgery
PROC: (CPT 49505; principal; 2017-11-01 09:35)
DX: K40.90 Unilateral inguinal hernia, without obstruction or gangrene, not specified as recurrent (principal); Z87.891 Personal history of nicotine dependence
CPT/HCPCS: 49505; 88302; J7120; C1781

== ENCOUNTER 2018-03-12 22:33 | Emergency (ER) | payer OTHER, SELFPAY ==
[2018-03-12 22:33] VITALS: BP 143/91; PULSE 61; RESP 16; TEMP 36.4; O2SAT 99; BMI 25.0
--- NOTE | 2018-03-12 22:36 | ED.VISSUMM ---
- ER Visit Summary Date of Service: 03/12/18 Chief Complaint: Abdominal pain History of Present Illness: The patient is a [address] Buck Rouse. He reports that he has epigastric abdominal pain that began approximately 20 minutes ago. It was a sharp, cramping pain. It was 9-10 at worst and 6 out of 10 currently. Is worsened by nothing. Is relieved by walking. He denies any associated nausea, vomiting, or diarrhea. His last bowel was today. He denies any dysuria frequency. He is passing flatus. Patient reports approximate 5 days ago he began a number of supplements including a B complex, Protection jelly, ox bile, omega-3, HP 270, and Formulaid. States this evening he went out and drank 3-4 beers prior to the onset of his pain. He has not eaten for approximately 5 hours. At that time he had 2 slices of pizza. He denies any history of fatty food intolerance. He does have a history of spicy food intolerance. Physical Examination: Vitals: Stable. Afebrile. General: Well-nourished and well-developed. Head: Normocephalic atraumatic. Neck: Supple, no lymphadenopathy. No JVD. Nontender. Cardiovascular: Regular rate and rhythm. No murmurs. Respiratory: No respiratory distress. Clear to auscultation bilaterally. Abdominal: Soft, mild epigastric tenderness to palpation, nondistended, normal bowel sounds. No guarding, rebound, or peritoneal signs. Back: Nontender. Extremities: Nontender, no edema. Skin: Normal color, no rash. Neurologic: Alert and oriented ?3. Cranial nerves II through XII are intact. Normal strength and sensation. Psych: Normal affect. Test Results: CBC is remarkable for hematocrit of 37.3. Chem-7 is more for calcium 8.3. LFTs are normal. Lipase is normal. Emergency Department Course and Treatment: Patient refused Toradol and Mylanta. He reports his pain is completely resolved. Treatment Plan: Patient will be discharged instructions to follow-up his primary care physician in 1-2 days if not improving. Return to the emergency department for any worsening symptoms. Disposition: To home in improved and stable condition. Impression: 1. Abdominal pain, uncertain cause. This note was generated with [employer] Analyticsation software. It may contain incorrect words, spelling, and punctuation that were not noted in review of the chart prior to signing ED Disposition - Plan for ED Patient: Disposition: Home or Assisted Living Chief Complaint: Abd Pain Instructions: ED Abdominal Pain Unkn Cause Referrals: Buck Rouse MD [Primary Care Provider] - 1-2 Days if not improving
[2018-03-12] MEDS: 0.9% Normal Saline 1,000 ML 1000 ML IV (23:03)
[2018-03-12 23:13] LABS: Absolute Lymphocyte Count 1.69 X10^3/ul (0.83-4.51); Absolute Neutrophil Count 4.7 X10^3/uL (2.0-7.7); Basophil# 0.05 X10^3/uL; Basophil% 0.7 % (0-1); Eosinophils% 1.4 % (0-5); Hematocrit 37.3 % (40-54); Lymphocyte # 1.69 X10^3/ul (4.0); Lymphocyte % 24.1 % (19-41); Mean Corp Hgb Conc 34.9 g/gl (32-36); Mean Corpuscular Hgb 30.7 pg (27.0-32.0); Mean Corpuscular Volume 88.2 fL (80-94); Mean Platelet Vol. 8.8 fl (6.2-12.0); Monocyte# 0.49 X10^3/uL; Neutrophil # 4.67 X10^3/uL (2.7-7.7); Neutrophil % 66.5 % (47-70); Platelet Count 254 K/mm3 (150-450); RBC Distribution Width CV 12.5 % (11.6-14.6); RBC Distribution Width SD 38.9 fl (35.1-43.9); Red Blood Count 4.23 M/mm3 (4.6-6.2)
[2018-03-12 23:24] LABS: ALB/GLOB Ratio 1.1 RATIO (0.9-2.4); AST(SGOT) 18 U/L (15-37); Alanine Aminotransfer ALT/SGPT 30 U/L (16-61); Albumin, Serum 4.1 g/dL (3.2-5.0); Alkaline Phosphatase 93 U/L (45-117); Anion Gap 7 (5-15); BUN 14 mg/dL (7-18); BUN/Creat Ratio 18.5 RATIO (10-20); Calcium,Total 8.3 mg/dL (8.5-10.1); Chloride 107 mmol/L (98-107); Creatinine, Serum 0.76 mg/dL (0.70-1.30); EST Glomerular Filtration Rate 129 mL/min (>60); Est Glom Filt Rate - Afr Amer 156 mL/min (>60); Estimated Creatinine Clearance 180.74 ml/min; Globulin 3.7 g/dL (2.2-4.2); Glucose 89 mg/dL (74-106); POSITIVE COUNT NO; POSITIVE DIFFERENTIAL NO; POSITIVE MORPHOLOGY NO; Potassium 3.6 mmol/L (3.5-5.1); Protein, Total 7.8 g/dL (6.4-8.2); Sodium Level 139 mmol/L (136-145)
[2018-03-12 23:46] LABS: Lactic Acid 1.2 mmol/L (0.4-2.0)
--- NOTE | 2018-03-12 23:50 | ED.RN ---
PATIENT FEELS PERFECTLY FINE RIGHT NOW AND DOES NOT WANT PAIN MEDICATION. MADE AWARE.
[2018-03-12 23:53] LABS: Lipase 79 U/L (73-393)
[2018-03-13 00:18] VITALS: BP 118/72; PULSE 56; O2SAT 100
== END 2018-03-13 00:20 | disposition home or self-care (01) ==
PROVIDERS: Emergency Provider Emergency Medicine; Family Provider Family Medicine; PCP Family Medicine
DX: R10.9 Unspecified abdominal pain (principal)
CPT/HCPCS: 80053; 83605; 83690; 85025; 96361; 96374; 99283; J7030; A4216

== ENCOUNTER → 2018-07-21 12:49 | Outpatient (CLI) | payer OTHER, SELFPAY ==
--- NOTE | 2018-07-21 | LES_PTH ---
PATIENT: MAYANK LINDO LOC: [facility] U#:[id number] AGE/SX: 35/M ROOM: RE07/21/[address]: Dr. Buck Rouse MD : 1990 BED: DIS: SPEC #: [id number] RECD: 07/21/18 12:12 STATUS: ARIAS DAVE #: [id number] JOSE: 07/21/18 00:[address]: Buck Rouse DEPT: SURGICAL PATHOLOGY RECD BY: Lester Garrido Tissues: Skin of leg, NOS Procedures: Surgery Specimen Level IV HEADER OPERATION: Mole removal left lower leg PRE-OP DIAGNOSIS: Mole left lower leg TISSUE SUBMITTED: Mole left lower leg MICROSCOPIC DIAGNOSIS Left lower leg skin lesion, biopsy: Consistent with common blue nevus. SJ:manju 07/22/18 MICROSCOPIC DESCRIPTION Slides are reviewed. GROSS DESCRIPTION Received in fixative is one container labeled with the patient's name and designated mole left lower leg. The specimen consists of a malik-white skin ellipse measuring 0.9 x 0.3 cm and 0.1 cm in thickness. The specimen is inked and submitted entirely in one cassette. It will be sectioned at the time of embedding. / SJ:manju 07/21/18 TC:1 CPT: 05259
== END ==
PROVIDERS: Family Provider Family Medicine; PCP Family Medicine; Referring Provider Family Medicine; Visit Provider Family Medicine
DX: D22.72 Melanocytic nevi of left lower limb, including hip (principal)
CPT/HCPCS: 88305

== ENCOUNTER → 2019-06-02 08:00 | Outpatient (CLI) | payer OTHER, SELFPAY ==
[2019-05-29 14:51] VITALS: BMI 25.4
[2019-06-02 08:33] LABS: Absolute Lymphocyte Count 1.77 X10^3/uL (0.83-4.51); Absolute Neutrophil Count 2.8 X10^3/uL (2.0-7.7); Basophil# 0.07 X10^3/uL; Basophil% 1.3 % (0-1); Eosinophil# 0.09 X10^3/uL; Eosinophils% 1.7 % (0-5); Hematocrit 39.2 % (40-54); Hemoglobin 13.4 g/dL (13.0-16.5); Lymphocyte # 1.77 X10^3/ul (4.0); Lymphocyte % 33.7 % (19-41); Mean Corp Hgb Conc 34.2 g/dL (32-36); Mean Corpuscular Hgb 29.5 pg (27.0-32.0); Mean Corpuscular Volume 86.3 fL (80-94); Mean Platelet Vol. 8.9 fl (6.2-12.0); Monocyte# 0.51 X10^3/uL; Monocyte% 9.7 % (0-10); NRBC Flagged by Analyzer 0 % (0-5); Neutrophil # 2.79 X10^3/uL (2.7-7.7); Neutrophil % 53.2 % (47-70); Platelet Count 250 K/mm3 (150-450); RBC Distribution Width CV 12.4 % (11.6-14.6); RBC Distribution Width SD 38.7 fl (35.1-43.9); Red Blood Count 4.54 M/mm3 (4.6-6.2); White Blood Count 5.3 K/mm3 (4.4-11.0)
[2019-06-02 09:10] LABS: ALB/GLOB Ratio 1.1 RATIO (0.9-2.4); AST(SGOT) 17 U/L (15-37); Alanine Aminotransfer ALT/SGPT 21 U/L (16-61); Alkaline Phosphatase 86 U/L (45-117); Anion Gap 4 (5-15); BUN 17 mg/dL (7-18); BUN/Creat Ratio 19.1 RATIO (10-20); Calcium,Total 8.9 mg/dL (8.5-10.1); Chloride 107 mmol/L (98-107); Cholesterol 221 mg/dL (200); Creatinine, Serum 0.89 mg/dL (0.70-1.30); EST Glomerular Filtration Rate 106 mL/min (>60); Est Glom Filt Rate - Afr Amer 129 mL/min (>60); Globulin 3.7 g/dL (2.2-4.2); Glucose 92 mg/dL (74-106); High Density Lipoprotein 74 mg/dL; Potassium 3.9 mmol/L (3.5-5.1); Protein, Total 7.7 g/dL (6.4-8.2); Sodium Level 142 mmol/L (136-145); Thyroid Stim Hormone (TSH) 1.37 uIU/mL (0.358-3.74); Triglycerides 43 mg/dL; Very Low Density Lipoprotein 9 mg/dL (5-40)
[2019-06-05 10:55] LABS: Vitamin B12 846 pg/mL (211-911); Vitamin D,25 Hydroxy 51.7 ng/mL
== END ==
PROVIDERS: PCP Family Medicine; Referring Provider Family Medicine; Visit Provider Family Medicine
DX: R53.83 Other fatigue (principal); Z13.220 Encounter for screening for lipoid disorders
CPT/HCPCS: 36415; 80053; 80061; 82306; 82607; 84443; 85025

== ENCOUNTER → 2019-09-11 15:18 | Outpatient (CLI) | payer OTHER, SELFPAY ==
[2019-08-30 09:08] VITALS: BMI 25.4
[2019-09-11 17:28] LABS: Absolute Neutrophil Count 4.8 X10^3/uL (2.0-7.7); Hematocrit 39.1 % (40-54); Hemoglobin 12.8 g/dL (13.0-16.5); Mean Corp Hgb Conc 32.7 g/dL (32-36); Mean Corpuscular Hgb 29.7 pg (27.0-32.0); Mean Corpuscular Volume 90.7 fL (80-94); Platelet Count 267 K/mm3 (150-450); Red Blood Count 4.31 M/mm3 (4.6-6.2); White Blood Count 6.9 K/mm3 (4.4-11.0)
[2019-09-11 18:24] LABS: ALB/GLOB Ratio 1.1 RATIO (0.9-2.4); AST(SGOT) 16 U/L (15-37); Alanine Aminotransfer ALT/SGPT 24 U/L (16-61); Albumin, Serum 3.8 g/dL (3.2-5.0); Alkaline Phosphatase 83 U/L (45-117); Anion Gap 8 (5-15); BUN 14 mg/dL (7-18); BUN/Creat Ratio 16.2 RATIO (10-20); Chloride 103 mmol/L (98-107); Creatinine, Serum 0.86 mg/dL (0.70-1.30); EST Glomerular Filtration Rate 110 mL/min (>60); Est Glom Filt Rate - Afr Amer 133 mL/min (>60); Globulin 3.6 g/dL (2.2-4.2); Glucose 80 mg/dL (74-106); Potassium 3.7 mmol/L (3.5-5.1); Protein, Total 7.4 g/dL (6.4-8.2); Sodium Level 140 mmol/L (136-145)
[2019-09-11 21:08] LABS: Lymphocyte 22 % (19-41); Monocyte 4 % (0-10); Neutrophil-Band 1 % (0-5); Neutrophil-Segmented 73 % (47-70); Total Cells Counted 100 (MANUAL DIFF)
[2019-09-11 21:09] LABS: Platelet Estimate ADEQUATE (ADEQ); Red Cell Morphology NORM C+C NORMAL (NORM C&C)
[2019-09-12 10:03] LABS: Hepatitis C Antibody Non-Reactive (Nonreactive)
[2019-09-13 12:39] LABS: Ferritin 82 ng/mL (26-388)
== END ==
PROVIDERS: PCP Family Medicine; Visit Provider Family Medicine
DX: R53.83 Other fatigue (principal); K29.70 Gastritis, unspecified, without bleeding
CPT/HCPCS: 36415; 80053; 82728; 85007; 85027; 86803

== ENCOUNTER → 2019-09-12 10:51 | Outpatient (CLI) | payer OTHER, SELFPAY ==
[2019-08-30 09:08] VITALS: BMI 25.4
[2019-09-15 04:05] LABS: H. PYLORI STOOL AG Negative (Negative)
== END ==
PROVIDERS: PCP Family Medicine; Referring Provider Family Medicine; Visit Provider Family Medicine
DX: K29.70 Gastritis, unspecified, without bleeding (principal); R53.83 Other fatigue

== ENCOUNTER 2019-11-07 14:49 | Emergency (ER) | payer OTHER, SELFPAY ==
[2019-08-30 09:08] VITALS: BMI 25.4
[2019-11-07 14:52] VITALS: BP 132/70; PULSE 70; RESP 18; TEMP 36.8; O2SAT 99; BMI 26.7
--- NOTE | 2019-11-07 15:10 | EKG12_ITS ---
Test Reason : CHEST OTHER Blood Pressure : / mmHG Vent. Rate : 058 BPM Atrial Rate : 058 BPM P-R Int : 162 ms QRS Dur : 110 ms QT Int : 416 ms P-R-T Axes : 066 060 049 degrees QTc Int : 408 ms Sinus bradycardia Otherwise normal ECG Confirmed by MAXWELL ASHTON ([id number]), legal editor KEKE FISH ([id number]) on 11/13/2019 9:52:03 AM Referred By: ERIBERTO Confirmed By:MAXWELL ASHTON
--- NOTE | 2019-11-07 15:10 | ED.DCSUM_ITS ---
History of Present Illness Chief Complaint: Chest Other Informant: Patient, EMS Onset: Weeks - 1 Activity at onset: Unknown Timing: Waxes and wanes Quality: Tightness Location: Left Chest - with discomfort in LUE also today Current Severity: Mild Maximum Severity: Mild Worsened By: Nothing. Not Worsened By: Exertion, Movement of Arm, Movement of Torso, Eating, Breathing, Coughing Relieved By: Nothing - hasn't tried any treatments Associated Symptoms: Palpitations - once in middle of the night, several nights ago. Negative for: Nausea, Vomiting, Diaphoresis, Dyspnea, Cough, Fever Narrative: Patient states he has been having numbness in his hands all week, it has been waxing and waning, bilaterally, as well as intermittent chest discomfort that has been on the left side, nonpleuritic tightness, relatively mild, which he has now today and has been more persistent today along with left upper extremity discomfort. Call the doctor about it and was advised to call 911 to come to the hospital which he did. He does not have a history of heart problems, nor any other problems other than acid reflux for which he takes esomeprazole. No significant family history of heart problems at a young age, he is a non-smoker, does not use any illicit substances. - Past Medical History (1) Acid reflux Status: Chronic (2) MTHFR gene mutation Status: Chronic Past Medical History - Allergies and Home Meds Allergies/Adverse Reactions: Allergies shellfish derived Allergy (Severe, Verified 11/07/19 15:01) Nausea/Vom/Diarrhea iodine Allergy (Verified 11/07/19 15:01) Nausea/Vom/Diarrhea Primary Care Physician: Onel Torres MD [Primary Care Provider] - Surgical History: appendectomy - postoperative day 5, herniorrhaphy Smoking Status: Never smoker Drugs: None Review of Systems General: Denies: Chills, Fever, Sweats Eyes: Denies: Visual changes - bilaterally, Diplopia ENT: Denies: Bilateral ear pain, Rhinorrhea, Sore throat Cardiovascular: Reports: Chest pain, Palpitations - See HPI. None today. Respiratory: Denies: Dyspnea, Cough, Dyspnea on exertion Gastrointestinal: Denies: Abdominal pain, Nausea, Vomiting, Diarrhea, Melena, Hematochezia Genitourinary: Denies: Dysuria, Hematuria, Frequency Musculoskeletal: Reports: Extremity Pain. Denies: Myalgias, Neck pain, Back pain, Swelling Skin: Denies: Rash, Wounds Neurological: Reports: Parasthesia. Denies: Headache, Weakness Physical Exam Vital Signs/Narrative: Vital Signs Temp Pulse Resp BP Pulse Ox 11/07/19 14:52 98.2 F 70 18 132/70 H 99 Inital Vital Signs reviewed: Yes General: Well nourished, Well developed, No Acute Distress Head: Normocephalic, Atraumatic Eyes: Perrl, EOMI ENT: Moist mucous membranes, No rhinorrhea Neck: Supple, Nontender, No lymphadenopathy, No JVD Cardiovascular: Regular rate, Regular rhythm, No murmurs, Normal S1, Normal S2. Negative for: Tachycardia Respiratory: No distress, CTA bilaterally, Chest nontender Abdomen: Soft, Nontender, Nondistended, Normal bowel sounds Back: Nontender, Normal Inspection Extremities: Nontender, No edema. Negative for: Calf Tenderness Skin: Normal color, No rash, No Trauma Neurological: Alert, Oriented x3, Cranial nerves II-XII grossly intact, Normal Strength, Normal Sensation Psychological: Normal affect, Normal Mood Diagnostic/Tx/Re-eval Impressions Chest X-Ray 11/07/19 15:45 IMPRESSION: Normal x-ray examination of the chest. Electronically Signed: Maegan Rosales, at 16:07 EDT Tel , Service support , 11/07/19 15:45 Chest 1 View (Portable) [RAD] Stat Laboratory Results 11/07/19 11/07/19 15:20 15:20 WBC 4.7 RBC 4.47 L Hgb 13.3 Hct 39.7 L MCV 88.8 MCH 29.8 MCHC 33.5 RDW Std Deviation 38.5 RDW Coeff of Joni 12.0 Plt Count 254 MPV 9.0 Immature Gran % (Auto) 0.200 Neut % (Auto) 64.8 Lymph % (Auto) 22.3 [place] % (Auto) 10.0 Eos % (Auto) 1.9 Baso % (Auto) 0.8 Absolute Neuts (auto) 3.1 Absolute Lymphs (auto) 1.05 Nucleated RBC % 0 Sodium 140 Potassium 3.5 Chloride 106 Carbon Dioxide 34.0 H Anion Gap 0 L BUN 10 Creatinine 0.84 Estim Creat Clear Calc 157.87 Est GFR (MDRD) Af Amer 138 Est GFR (MDRD) Non-Af 114 BUN/Creatinine Ratio 11.9 Glucose 103 Calcium 9.1 Troponin I < 0.015 - Rhythm Strip Rhythm Strip: Sinus Rhythm Rate: 60 Ectopy: None - EKG Initial EKG Interpretation: Sinus Rhythm, No Acute Injury Pattern - normal EKG Prior: Unchanged Treatment: GI Cocktail Repeat Eval: thinks improved; minimal symptoms RANDY Risk: No Positive RANDY Elements Score: 0 - Medical Decision Making Patient has low risk, heart score at the most 1 for history, possibly 0 as this is somewhat subjective, and a negative work-up. I feel he is safe to be discharged home. I do not think he has pulmonary embolus or need work-up for that now, in addition his PERC score is 0 ruling that out anyway. I reassured him, he is safe to be discharged to follow-up with his doctor. I suspect this is some type of esophageal process. He is already on a PPI, but has not yet been on it for 4 weeks. He should follow-up with his doctor after he has been on it for 4 weeks and revisit the topic, he may need to be referred for EGD or other testing. He is in agreement and comfortable with this plan and will continue his Nexium. ED Disposition - Plan for ED Patient: Disposition: Home or Assisted Living Diagnosis: Chest pain, atypical Instructions: ED Chest Pain NonCardiac Referrals: Onel Torres MD [Primary Care Provider] - 1 Week if not improving
[2019-11-07] MEDS: Mag Hydrox/Al Hydrox/Simeth 30 ML UDC PO (15:33)
--- NOTE | 2019-11-07 15:45 | RAD_ITS ---
STUDY: X-RAY CHEST REASON FOR EXAM: Male, 29 years old. numbness fingertips past few days and some discomfort to lt shoulder. felt heart and quot;skipping beats and beating fast and quot; TECHNIQUE: Single AP portable view of the chest. COMPARISON: None. FINDINGS: The lungs are clear and expanded. There is no demonstrated pleural abnormality. Normal size heart. Normal mediastinum and carlos. Normal visualized pulmonary arteries. Normal visualized aortic arch and descending thoracic aorta. Normal visualized thoracic spine. Normal visualized ribs, clavicles, and shoulders. There is no demonstrated abnormality of the visualized soft tissue structures of the upper abdomen. RAD/Chest 1 View (Portable) IMPRESSION: Normal x-ray examination of the chest. Electronically Signed: Maegan Rosales, at 16:07 EDT Tel , Service support ,
[2019-11-07 15:50] LABS: Absolute Lymphocyte Count 1.05 X10^3/uL (0.83-4.51); Absolute Neutrophil Count 3.1 X10^3/uL (2.0-7.7); Basophil# 0.04 X10^3/uL; Basophil% 0.8 % (0-1); Eosinophil# 0.09 X10^3/uL; Eosinophils% 1.9 % (0-5); Hematocrit 39.7 % (40-54); Hemoglobin 13.3 g/dL (13.0-16.5); Lymphocyte # 1.05 X10^3/ul (4.0); Lymphocyte % 22.3 % (19-41); Mean Corp Hgb Conc 33.5 g/dL (32-36); Mean Corpuscular Hgb 29.8 pg (27.0-32.0); Mean Corpuscular Volume 88.8 fL (80-94); Monocyte# 0.47 X10^3/uL; NRBC Flagged by Analyzer 0 % (0-5); Neutrophil # 3.05 X10^3/uL (2.7-7.7); Neutrophil % 64.8 % (47-70); Platelet Count 254 K/mm3 (150-450); RBC Distribution Width SD 38.5 fl (35.1-43.9); Red Blood Count 4.47 M/mm3 (4.6-6.2); White Blood Count 4.7 K/mm3 (4.4-11.0)
[2019-11-07 16:03] LABS: Anion Gap 0 (5-15); BUN 10 mg/dL (7-18); BUN/Creat Ratio 11.9 RATIO (10-20); Calcium,Total 9.1 mg/dL (8.5-10.1); Chloride 106 mmol/L (98-107); Creatinine, Serum 0.84 mg/dL (0.70-1.30); EST Glomerular Filtration Rate 114 mL/min (>60); Est Glom Filt Rate - Afr Amer 138 mL/min (>60); Estimated Creatinine Clearance 157.87 ml/min; Glucose 103 mg/dL (74-106); Potassium 3.5 mmol/L (3.5-5.1); Sodium Level 140 mmol/L (136-145)
[2019-11-07 16:43] VITALS: BP 112/70; PULSE 72; RESP 14; O2SAT 99
== END 2019-11-07 16:45 | disposition home or self-care (01) ==
PROVIDERS: Emergency Provider Emergency Medicine; PCP Family Medicine
DX: R07.89 Other chest pain (principal); K21.9 Gastro-esophageal reflux disease without esophagitis; E72.12 Methylenetetrahydrofolate reductase deficiency
CPT/HCPCS: 71045; 80048; 84484; 85025; 93005; 99285; J7030; A4216

== ENCOUNTER → 2019-11-14 15:36 | Outpatient (CLI) | payer OTHER, SELFPAY ==
[2019-11-07 14:52] VITALS: BMI 26.7
[2019-11-14 18:12] LABS: Erythrocyte Sedimentation Rate 3 mm/hr (0-15)
[2019-11-14 18:22] LABS: CRP < 2.90 mg/L (0.0-3.0); Rheumatoid Factor < 10.0 IU/mL (<15); Uric Acid 3.8 mg/dL (3.5-7.2)
[2019-11-16 15:27] LABS: ANTINUCLEAR ANTIBODIES DIRECT Negative (Negative)
== END ==
PROVIDERS: PCP Family Medicine; Referring Provider Family Medicine; Visit Provider Family Medicine
DX: M25.50 Pain in unspecified joint (principal)
CPT/HCPCS: 36415; 84550; 85652; 86038; 86140; 86431

== ENCOUNTER → 2019-11-16 08:58 | Outpatient (CLI) | payer OTHER, SELFPAY ==
[2019-11-07 14:52] VITALS: BMI 26.7
== END ==
PROVIDERS: PCP Family Medicine; Referring Provider Family Medicine; Visit Provider Family Medicine
DX: R00.2 Palpitations (principal)
CPT/HCPCS: 93225; 93226

== ENCOUNTER → 2019-12-08 11:44 | Outpatient (CLI) | payer OTHER, SELFPAY ==
[2019-11-29 14:32] VITALS: BMI 25.5
--- NOTE | 2019-12-08 11:45 | ECHOD_ITS ---
Reason For Study: CHEST PAIN Procedure This was a 2D Doppler, Color Flow transthoracic echocardiogram. Exam performed in department. Left Ventricle Normal LV size. Left ventricular systolic function is normal. The estimated ejection fraction is 60 %. Normal diastology for age. No regional wall motion abnormalities noted. Right Ventricle Normal RV size. Normal systolic function. Atria Normal left atrium. Normal right atrium. Mitral Valve Normal mitral valve. Mild (1+) eccentric mitral valve insufficiency. Tricuspid Valve Normal tricuspid valve. Aortic Valve Normal aortic valve. Trisinus/trileaflet aortic valve. Pulmonic Valve Normal pulmonic valve. Great Vessels Normal aortic root. The pulmonary artery is normal size. Normal inferior vena cava. Pericardium/Pleural No pericardial effusion. MMode/2D Measurements & Calculations LVIDd: 5.0 cm IVSd: 0.82 cm Ao root diam: 3.4 cm LVIDs: 3.2 cm LVPWd: 0.81 cm RVDd: 2.7 cm FS: 35.8 % LAV(MOD-bp): 50.5 ml LA A4 area: 18.1 cm2 LA dimension(2D): 3.2 cm LAV(MOD-bp) Indexed: 22.3 ml/m2 LAV(MOD-sp2): 50.0 ml LAV(MOD-sp4): 50.0 ml RA A4 area: 13.0 cm2 Time Measurements MV dec time: 0.32 sec Doppler Measurements & Calculations MV E max caleb: 68.8 cm/sec Lat Peak E' Caleb: 19.4 cm/sec Med Peak E' Caleb: 11.7 cm/sec MV A max caleb: 51.8 cm/sec E/E' lat: 3.6 E/E' med: 5.9 MV E/A: 1.3 Ao V2 max: 153.1 cm/sec LV V1 max: 121.4 cm/sec PA V2 max: 112.8 cm/sec Ao max P.4 mmHg LV V1 max P.9 mmHg TR max caleb: 249.5 cm/sec TR max P.9 mmHg Interpretation Summary Normal LV size. Left ventricular systolic function is normal. The estimated ejection fraction is 60 %. Mild (1+) eccentric mitral valve insufficiency. Ordering Physician: Zeferino Wilkerson Referring Physician: CARLA PERRY Performed By: Susan Jose, SUNNY, RVT
--- NOTE | 2019-12-08 13:56 | STRESSREP ---
Stress Test Report Exercise stress test. 29-year-old man with a history of fatigue. Resting EKG demonstrates normal sinus rhythm with a rate of 59 bpm normal intervals are noted. The patient exercised according to the regular Major protocol for a total duration of 10 minutes and 45 seconds. The maximum heart rate attained was 169 bpm which was 88% of max impacted heart rate the maximum workload was 12.9 metabolic equivalents. The patient maintained sinus rhythm throughout the recording. At rest there were no ST or T wave changes noted to suggest ischemia at peak exercise upsloping ST changes only were noted. No clinical angina was noted. The resting blood pressure was 122/70 with a peak blood pressure 180/80 mmHg. No clinical angina was noted the test was terminated due to fatigue. Patient did complain of some dizziness and extreme fatigue. Conclusion: Exercise stress test with no EKG criteria for ischemia at a high workload. Mild functional aerobic impairment. No significant arrhythmias noted other than PVCs.
== END ==
PROVIDERS: PCP Family Medicine; Referring Provider Internal Medicine Cardiovascular Disease; Visit Provider Internal Medicine Cardiovascular Disease
DX: R07.9 Chest pain, unspecified (principal); R00.2 Palpitations
CPT/HCPCS: 93017; 93306

== ENCOUNTER → 2019-12-18 13:33 | Outpatient (CLI) | payer OTHER, SELFPAY ==
[2019-11-29 14:32] VITALS: BMI 25.5
--- NOTE | 2019-12-18 14:20 | CT_ITS ---
STUDY: CT CHEST WITH CONTRAST REASON FOR EXAM: Male, 29 years old. DYSPNEA. RADIATION DOSAGE (If Supplied By Facility): CTDIvol = ( 13.02 ) mGy, DLP = ( 870.86 ) mGycm TECHNIQUE: Transaxial imaging was performed following intravenous administration of IV 100mL Isovue-300. Multiplanar coronal and sagittal images were reformatted. Individualized dose optimization techniques were used for this CT. COMPARISON: None. FINDINGS: Small bilateral benign appearing axillary lymph nodes. The lungs are normal. There is no demonstrated pleural abnormality. Normal heart and pericardium. Normal mediastinum. Normal hilar regions. Normal enhanced pulmonary arteries. Normal aorta arch and descending thoracic aorta. Normal osseous structures. There is no demonstrated abnormality of the visualized upper abdomen. CT/Chest WITH Contrast IMPRESSION: Normal enhanced CT Chest examination. Electronically Signed: Florin Leos, at 15:30 EDT , Service support ,
== END ==
PROVIDERS: PCP Family Medicine; Referring Provider Internal Medicine Cardiovascular Disease; Visit Provider Internal Medicine Cardiovascular Disease
DX: R40.0 Somnolence (principal); R07.9 Chest pain, unspecified; R00.2 Palpitations; R06.00 Dyspnea, unspecified
CPT/HCPCS: 71260; Q9967

== ENCOUNTER → 2019-12-27 14:20 | Outpatient (CLI) | payer OTHER, SELFPAY ==
[2019-12-19 15:08] VITALS: BMI 25.4
--- NOTE | 2019-12-27 15:53 | NEURO ---
NCS and/or EMG Patient Report Ordering Doctor: Onel Torres DATE OF SERVICE: 12/27/19 Gordy Yuen presents for electrodiagnostic testing of the upper limbs. He reports a several month history of numbness tingling and pain in both arms. Electrodiagnostic findings: Median motor nerve demonstrates normal distal latency, amplitude and conduction velocity bilaterally. Normal ulnar motor response bilaterally. Normal median ulnar F waves. Sensory responses are within normal limits. On needle EMG, 1+ fibrillations are noted bilaterally in the triceps. 1+ fibrillations noted in the right lower cervical paraspinals. Motor unit action potentials are of normal amplitude and duration without polyphasic activity. Electrodiagnostic impression: This is an abnormal study in the upper limbs 1. Electrodiagnostic evidence is suggestive for right C7 radiculopathy. There is also denervation noted in the left C7 dermatomal distribution, though no denervation is noted in the left cervical paraspinals. Would consider correlation with cervical spine imaging to evaluate for disc abnormalities. 2. No electrodiagnostic evidence is noted for peripheral neuropathy, including carpal tunnel or cubital tunnel syndrome. If there are any further questions, please do not hesitate to contact me.
== END ==
PROVIDERS: PCP Family Medicine; Referring Provider Family Medicine; Visit Provider Family Medicine
DX: R20.0 Anesthesia of skin (principal)
CPT/HCPCS: 95886; 95913

== ENCOUNTER → 2020-01-25 16:11 | Outpatient (CLI) | payer OTHER, SELFPAY ==
[2020-01-17 14:52] VITALS: BMI 26.2
--- NOTE | 2020-01-25 16:11 | MRI_ITS ---
STUDY: MRI CERVICAL SPINE WITHOUT CONTRAST REASON FOR EXAM: Male, 29 years old. Cervical radiculopathy numbness tingling bilateral hand and shoulder pain TECHNIQUE: Standardized fat and water weighted pulse sequences were obtained in the sagittal and axial planes. COMPARISON: None FINDINGS: Craniocervical junction and cervical spine are intact and aligned with normal marrow and paraspinal soft tissues. STUDY: MRI CERVICAL SPINE WITHOUT CONTRAST REASON FOR EXAM: , old. TECHNIQUE: Standardized fat and water weighted pulse sequences were obtained in the sagittal and axial planes. COMPARISON: 17 January 2020 FINDINGS: Normal foramen magnum and brainstem-cervical cord junction. Normal craniovertebral junction. Normal anterior atlantoaxial articulation. Normal odontoid process. Normal cervical lordosis. Normal vertebral bodies and posterior osseous elements. C2-3: Normal endplates. Normal disc height, signal and morphology. Normal central canal and intervertebral neural foramina. C3-4: Normal endplates. Normal disc height, signal and morphology. Normal central canal and intervertebral neural foramina. C4-5: Normal endplates. Normal disc height, signal and morphology. Normal central canal and intervertebral neural foramina. C5-6: Normal endplates. Normal disc height, signal with right broad disc endplate osteophyte and uncinate hypertrophy. Normal central canal and intervertebral neural foramina. C6-7: Normal endplates. Normal disc height, signal and morphology. Normal central canal and intervertebral neural foramina. C7-T1: Normal endplates. Normal disc height, signal and morphology. Normal central canal and intervertebral neural foramina. Normal cervical cord. However, cord signal is suboptimally evaluated due to artifact on sagittal STIR images. Normal visualized soft tissue structures. IMPRESSION: 1. Mild C5-C6 disc space degeneration. 2. Normal cord, patent canal, no neural compression. MRI/Spine Cervical (Routine) IMPRESSION: 1. Unremarkable cervical spine. Electronically Signed: Mauro Garcia, at 20:29 EST Tel , Service support ,
== END ==
PROVIDERS: PCP Family Medicine; Referring Provider Orthopaedic Surgery; Visit Provider Orthopaedic Surgery
DX: M54.12 Radiculopathy, cervical region (principal)
CPT/HCPCS: 72141

== ENCOUNTER → 2020-03-04 15:57 | Outpatient (CLI) | payer OTHER, SELFPAY ==
[2020-03-06 16:08] LABS: Endomysial Antibody IgA Negative (Negative)
[2020-03-06 16:27] LABS: Immunoglobulin A 353 mg/dL (90-386); t-Transglutaminase IgA <2 U/mL (0-3)
[2020-03-07 16:09] LABS: Alternaria tenuis <0.10 kU/L (Class 0); Ash, White <0.10 kU/L (Class 0); Aspergillus fumigatus <0.10 kU/L (Class 0); Bermuda Grass <0.10 kU/L (Class 0); Birch <0.10 kU/L (Class 0); Black Walnut <0.10 kU/L (Class 0); Cat Hair / Dander,Stand <0.10 kU/L (Class 0); Cedar, Mountain <0.10 kU/L (Class 0); Cladosporium herbarum <0.10 kU/L (Class 0); Cockroach, American 0.11 kU/L (Class 0/I); Cottonwood <0.10 kU/L (Class 0); D farinae Mite 4.55 kU/L (Class IV); D pteronyssinus 3.77 kU/L (Class III); Dog Epithelia <0.10 kU/L (Class 0); Elm, American White <0.10 kU/L (Class 0); Immunoglobulin E 32 IU/mL (6-495); Mulberry, White <0.10 kU/L (Class 0); Oak, White <0.10 kU/L (Class 0); Pecan <0.10 kU/L (Class 0); Penicillium Notatum <0.10 kU/L (Class 0); Pigweed, Rough <0.10 kU/L (Class 0); Ragweed, Short/Common <0.10 kU/L (Class 0); Russian Thistle <0.10 kU/L (Class 0); Sheep Sorrel <0.10 kU/L (Class 0); Sycamore, American <0.10 kU/L (Class 0); Timothy Grass 0.51 kU/L (Class I)
[2020-03-07 18:25] LABS: Mouse Urine <0.10 kU/L (Class 0)
[2020-03-08 04:07] LABS: Beef <0.10 kU/L (Class 0); Corn <0.10 kU/L (Class 0); Egg, Whole <0.10 kU/L (Class 0); Milk (Cow) <0.10 kU/L (Class 0); Peanut <0.10 kU/L (Class 0); Pork <0.10 kU/L (Class 0); Soybean <0.10 kU/L (Class 0); Wheat <0.10 kU/L (Class 0)
[2020-03-08 10:57] LABS: Chocolate <0.10 kU/L (Class 0)
== END ==
PROVIDERS: PCP Family Medicine; Visit Provider Family Medicine
DX: K90.9 Intestinal malabsorption, unspecified (principal); J30.9 Allergic rhinitis, unspecified
CPT/HCPCS: 36415; 82784; 82785; 83516; 86003; 86005; 86255

== ENCOUNTER → 2020-03-21 10:52 | Outpatient (CLI) | payer OTHER, SELFPAY ==
[2020-03-21 11:09] LABS: Absolute Lymphocyte Count 1.18 X10^3/uL (0.83-4.51); Absolute Neutrophil Count 2.9 X10^3/uL (2.0-7.7); Basophil# 0.05 X10^3/uL; Basophil% 1.1 % (0-1); Eosinophil# 0.08 X10^3/uL; Eosinophils% 1.8 % (0-5); Hematocrit 42.4 % (40-54); Hemoglobin 14.5 g/dL (13.0-16.5); Lymphocyte # 1.18 X10^3/ul (4.0); Mean Corp Hgb Conc 34.2 g/dL (32-36); Mean Corpuscular Volume 87.6 fL (80-94); Mean Platelet Vol. 8.4 fl (6.2-12.0); Monocyte# 0.37 X10^3/uL; Monocyte% 8.1 % (0-10); NRBC Flagged by Analyzer 0 % (0-5); Neutrophil # 2.85 X10^3/uL (2.7-7.7); Neutrophil % 62.8 % (47-70); Platelet Count 249 K/mm3 (150-450); RBC Distribution Width CV 12.2 % (11.6-14.6); RBC Distribution Width SD 38.7 fl (35.1-43.9); Red Blood Count 4.84 M/mm3 (4.6-6.2); White Blood Count 4.5 K/mm3 (4.4-11.0)
[2020-03-21 11:25] LABS: ALB/GLOB Ratio 1.1 RATIO (0.9-2.4); AST(SGOT) 14 U/L (15-37); Alanine Aminotransfer ALT/SGPT 31 U/L (16-61); Albumin, Serum 4.4 g/dL (3.2-5.0); Alkaline Phosphatase 79 U/L (45-117); Anion Gap 2 (5-15); BUN 10 mg/dL (7-18); BUN/Creat Ratio 10.8 RATIO (10-20); Calcium,Total 9.7 mg/dL (8.5-10.1); Chloride 104 mmol/L (98-107); Creatinine, Serum 0.92 mg/dL (0.70-1.30); EST Glomerular Filtration Rate 102 mL/min (>60); Est Glom Filt Rate - Afr Amer 123 mL/min (>60); Globulin 3.9 g/dL (2.2-4.2); Glucose 82 mg/dL (74-106); Potassium 3.7 mmol/L (3.5-5.1); Protein, Total 8.3 g/dL (6.4-8.2); Sodium Level 139 mmol/L (136-145)
[2020-03-21 11:37] LABS: Vitamin B12 1292 pg/mL (211-911)
[2020-03-21 12:05] LABS: Ferritin 116 ng/mL (26-388); Iron 78 ug/dL (65-175); Iron Binding Capacity,Total 342 ug/dL (250-450); LDH 160 U/L (87-241); Magnesium 2.3 mg/dL (1.6-2.6); PERCENT IRON SATURATION 22.8 % (15.0-55.0); Phosphorus 3.3 mg/dL (2.5-4.9)
== END ==
PROVIDERS: PCP Family Medicine; Referring Provider Internal Medicine Medical Oncology; Visit Provider Internal Medicine Medical Oncology
DX: E61.1 Iron deficiency (principal)
CPT/HCPCS: 36415; 80053; 82607; 82728; 82746; 83540; 83550; 83615; 83735; 84100; 85025

== ENCOUNTER 2020-04-23 11:06 | Emergency (ER) | payer OTHER, SELFPAY ==
[2020-03-26 14:57] VITALS: BMI 25.1
[2020-04-23 11:09] VITALS: BP 130/86; PULSE 63; RESP 16; TEMP 36.7; O2SAT 98; BMI 25.7
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
[2020-04-23 12:20] VITALS: BP 127/69; PULSE 71; RESP 15; O2SAT 98
== END 2020-04-23 12:20 | disposition home or self-care (01) ==
PROVIDERS: Emergency Provider Emergency Medicine; PCP Family Medicine
DX: S16.1XXA Strain of muscle, fascia and tendon at neck level, initial encounter (principal); S20.219A Contusion of unspecified front wall of thorax, initial encounter; S60.819A Abrasion of unspecified wrist, initial encounter; Y92.410 Unspecified street and highway as the place of occurrence of the external cause; Z87.891 Personal history of nicotine dependence
CPT/HCPCS: 71046; 72040; 99282

== ENCOUNTER 2020-09-02 09:43 | Emergency (ER) | payer OTHER, SELFPAY ==
[2020-09-02 09:45] VITALS: BP 142/71; PULSE 81; RESP 12; TEMP 35.8; O2SAT 99; BMI 24.9
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
[2020-09-02] MEDS: 0.9% Normal Saline 1,000 ML 1000 ML IV ×2 (10:56→12:22)
[2020-09-02] MEDS: Ondansetron 4 MG/2 ML Vial IV (10:56)
[2020-09-02] MEDS: LORazepam 2 MG/ML Syringe 1 MG IV (10:56)
--- NOTE | 2020-09-02 11:02 | CT_ITS ---
STUDY: CT BRAIN WITHOUT CONTRAST REASON FOR EXAM: Male, 30 years old. Dizziness and headache RADIATION DOSAGE (If Supplied By Facility): CTDIvol = ( 44.99 ) mGy, DLP = ( 812.98 ) mGycm TECHNIQUE: Transaxial CT imaging of the brain was performed without administration of intravenous contrast material. Individualized dose optimization techniques were used for this CT. COMPARISON: No relevant priors. FINDINGS: Normal soft tissue structures. Normal calvarium. Normal size ventricles and extra-axial spaces for the patient''s age. Normal white matter tracts of the cerebral hemispheres. Normal basal ganglia and thalami. Normal brainstem. Normal cerebellum. There is no intracranial hemorrhage. There are no findings of an acute ischemic infarction. Nasal septal deviation towards the right side of the midline. CT/Brain/Head without Contrast IMPRESSION: Normal unenhanced CT scan of the brain. Nasal septal deviation toward the right side of the midline. Electronically Signed: Florin Leos MD at 11:15 EDT , Service support ,
[2020-09-02 11:06] LABS: Absolute Neutrophil Count 13.5 X10^3/uL (2.0-7.7); Basophil# 0.05 X10^3/uL; Basophil% 0.3 % (0-1); Eosinophil# 0.02 X10^3/uL; Eosinophils% 0.1 % (0-5); Hematocrit 42.3 % (40-54); Hemoglobin 14.7 g/dL (13.0-16.5); Lymphocyte % 5.1 % (19-41); Mean Corp Hgb Conc 34.8 g/dL (32-36); Mean Corpuscular Volume 86.3 fL (80-94); Mean Platelet Vol. 8.9 fl (6.2-12.0); Monocyte% 7.1 % (0-10); NRBC Flagged by Analyzer 0 % (0-5); Neutrophil # 13.52 X10^3/uL (2.7-7.7); Neutrophil % 86.8 % (47-70); Platelet Count 262 K/mm3 (150-450); RBC Distribution Width CV 12.1 % (11.6-14.6); White Blood Count 15.6 K/mm3 (4.4-11.0)
[2020-09-02 11:37] LABS: ALB/GLOB Ratio 1.1 RATIO (0.9-2.4); AST(SGOT) 14 U/L (15-37); Alanine Aminotransfer ALT/SGPT 26 U/L (16-61); Albumin, Serum 4.1 g/dL (3.2-5.0); Alkaline Phosphatase 81 U/L (45-117); Anion Gap 8 (5-15); BUN 18 mg/dL (7-18); BUN/Creat Ratio 17.5 RATIO (10-20); Calcium,Total 9.5 mg/dL (8.5-10.1); Chloride 105 mmol/L (98-107); Creatinine, Serum 1.03 mg/dL (0.70-1.30); EST Glomerular Filtration Rate 89 mL/min (>60); Est Glom Filt Rate - Afr Amer 108 mL/min (>60); Estimated Creatinine Clearance 130.96 ml/min; Globulin 3.9 g/dL (2.2-4.2); Glucose 129 mg/dL (74-106); Lipase 52 U/L (73-393); Potassium 3.8 mmol/L (3.5-5.1); Sodium Level 141 mmol/L (136-145)
[2020-09-02 13:35] VITALS: BP 126/75; PULSE 61; RESP 16; O2SAT 100
== END 2020-09-02 13:41 | disposition home or self-care (01) ==
PROVIDERS: Emergency Provider Emergency Medicine; PCP Family Medicine
DX: E86.0 Dehydration (principal); R11.2 Nausea with vomiting, unspecified; R42 Dizziness and giddiness; J34.2 Deviated nasal septum; K21.9 Gastro-esophageal reflux disease without esophagitis; M99.01 Segmental and somatic dysfunction of cervical region
CPT/HCPCS: 70450; 80053; 83690; 85025; 96361; 96374; 96375; 99283; J7030; A4216; J2405

== ENCOUNTER → 2020-09-24 11:12 | Outpatient (CLI) | payer OTHER, SELFPAY ==
[2020-09-02 09:45] VITALS: BMI 24.9
[2020-09-24 12:04] LABS: Absolute Lymphocyte Count 1.18 X10^3/uL (0.83-4.51); Absolute Neutrophil Count 4.9 X10^3/uL (2.0-7.7); Basophil# 0.06 X10^3/uL; Basophil% 0.9 % (0-1); Eosinophil# 0.05 X10^3/uL; Eosinophils% 0.7 % (0-5); Hematocrit 45.2 % (40-54); Hemoglobin 15.8 g/dL (13.0-16.5); Lymphocyte # 1.18 X10^3/ul (0.83-4.51); Lymphocyte % 17.6 % (19-41); Mean Corpuscular Hgb 29.8 pg (27.0-32.0); Mean Corpuscular Volume 85.3 fL (80-94); Mean Platelet Vol. 8.9 fl (6.2-12.0); Monocyte# 0.51 X10^3/uL; Monocyte% 7.6 % (0-10); NRBC Flagged by Analyzer 0 % (0-5); Neutrophil # 4.88 X10^3/uL (2.7-7.7); Neutrophil % 72.9 % (47-70); Platelet Count 297 K/mm3 (150-450); RBC Distribution Width SD 37.5 fl (35.1-43.9); White Blood Count 6.7 K/mm3 (4.4-11.0)
[2020-09-24 12:32] LABS: AST(SGOT) 18 U/L (15-37); Alanine Aminotransfer ALT/SGPT 41 U/L (16-61); Albumin, Serum 4.3 g/dL (3.2-5.0); Alkaline Phosphatase 75 U/L (45-117); Anion Gap 6 (5-15); BUN 14 mg/dL (7-18); BUN/Creat Ratio 14.1 RATIO (10-20); Calcium,Total 9.5 mg/dL (8.5-10.1); Chloride 104 mmol/L (98-107); Creatinine, Serum 0.99 mg/dL (0.70-1.30); EST Glomerular Filtration Rate 93 mL/min (>60); Est Glom Filt Rate - Afr Amer 113 mL/min (>60); Ferritin 181 ng/mL (26-388); Globulin 4.2 g/dL (2.2-4.2); Glucose 102 mg/dL (74-106); Iron 88 ug/dL (65-175); Iron Binding Capacity,Total 325 ug/dL (250-450); PERCENT IRON SATURATION 27.1 % (15.0-55.0); Potassium 3.3 mmol/L (3.5-5.1); Protein, Total 8.5 g/dL (6.4-8.2); Sodium Level 136 mmol/L (136-145)
[2020-09-24 16:26] LABS: Bacteria 0 SEEN /hpf (None Seen); Mucous, Urine 0 SEEN /hpf (<or=2+); Red Blood Cells-Urine 0 SEEN /hpf (0-5); Squamous Epithelial Cells - UA 0 SEEN /hpf (0-5); White Blood Cells 0 SEEN /hpf (0-5)
[2020-09-24 18:16] LABS: Color, Urine Yellow (Yellow); Glucose, Dipstick Normal (Normal); Ketone-Dipstick 5 mg/dl (Negative); Leukocyte Esterase-Dipstick Negative /ul (Negative); Nitrite-Dipstick Negative (Negative); Occult Blood-Urine Negative /ul (Negative); Protein-Dipstick Negative (Negative); Specific Gravity, Urine 1.015 (1.002-1.030); Urine Bilirubin Dipstick Negative (Negative); Urine Clarity Sl. Cloudy (Clear); Urine Urobilinogen Normal (Normal); Urine pH 6.5 (5.0 - 8.0)
[2020-09-24 18:28] LABS: Coarse Granular Cast 0-5 SEEN /lpf (0-5 /lpf)
[2020-09-24 18:29] LABS: Amorphous Sediment 1+
[2020-09-28 14:08] LABS: Immunoglobulin A 377 mg/dL (90-386); Immunoglobulin G 1245 mg/dL (603-1613); Immunoglobulin M 108 mg/dL (20-172)
[2020-09-28 16:23] LABS: Immunoglobulin E 55 IU/mL (6-495)
== END ==
PROVIDERS: PCP Family Medicine; Visit Provider Family Medicine
DX: R82.90 Unspecified abnormal findings in urine (principal); E61.1 Iron deficiency; J30.9 Allergic rhinitis, unspecified; R42 Dizziness and giddiness
CPT/HCPCS: 36415; 80053; 81001; 82728; 82784; 82785; 83540; 83550; 85025; 87086

== ENCOUNTER → 2020-10-08 06:24 | Outpatient (CLI) | payer OTHER, SELFPAY ==
--- NOTE | 2020-10-08 06:39 | MRI_ITS ---
STUDY: MRI BRAIN WITH AND WITHOUT CONTRAST REASON FOR EXAM: Male, 30 years old. DIZZINESS -- ATTN IAC TECHNIQUE: Standardized multiplanar fat and water weighted pulse sequences were obtained. IV 19cc dotarem was administered for the contrast portion of the examination. COMPARISON: 10/16/2011 FINDINGS: Normal size of the ventricles and extra-axial spaces for the patient''s age. Normal white matter tracts of the supratentorial brain. Normal bilateral basal ganglia. Normal thalami. There is no extra-axial fluid accumulation. Normal flow voids within the major intracranial circulation suggesting patency by spin echo criteria. Normal venous enhancement. There is no enhancing intra-axial or extra-axial abnormality. Normal sella turcica, pituitary gland, infundibular stalk, optic chiasm and hypothalamus. Normal tectal plate and pineal gland. Normal midbrain, taylor and medulla. Normal cerebellum. Normal basal cisterns. Normal bilateral temporal bones. Normal bilateral internal auditory canals. No demonstrated orbital abnormality, within the constraints of a routine brain study. Normal visualized paranasal sinuses. Normal calvarium and skull base. Normal visualized soft tissue structures. Normal visualized upper cervical spine. MRI/Brain W/WO Contrast IMPRESSION: Normal unenhanced and enhanced MRI of the brain. There is no abnormal mass in the cerebellopontine angles or internal auditory canals. There is no abnormal enhancement along the 7th or 8th cranial nerves. Electronically Signed: Maegan Rosales MD at 7:30 EDT Tel , Service support ,
== END ==
PROVIDERS: PCP Family Medicine; Referring Provider Otolaryngology; Visit Provider Otolaryngology
DX: R42 Dizziness and giddiness (principal)
CPT/HCPCS: 70553; A9575

== ENCOUNTER → 2020-10-25 12:06 | Outpatient (CLI) | payer OTHER, SELFPAY ==
[2020-10-25 15:39] LABS: Anion Gap 6 (5-15); BUN 13 mg/dL (7-18); Calcium,Total 9.5 mg/dL (8.5-10.1); Chloride 104 mmol/L (98-107); Creatinine, Serum 0.93 mg/dL (0.70-1.30); EST Glomerular Filtration Rate 101 mL/min (>60); Est Glom Filt Rate - Afr Amer 122 mL/min (>60); Glucose 94 mg/dL (74-106); Magnesium 2.2 mg/dL (1.6-2.6); Sodium Level 138 mmol/L (136-145)
== END ==
PROVIDERS: PCP Family Medicine; Visit Provider Family Medicine
DX: E87.6 Hypokalemia (principal)
CPT/HCPCS: 36415; 80048; 83735

== ENCOUNTER 2020-11-15 14:30 | Outpatient (RCR) | payer OTHER, SELFPAY ==
--- NOTE | 2020-10-17 12:55 | HP.PTEVAL ---
Patient's Visit Information MAYANK LINDO is a 30 year old M referred to Physical Therapy by Dr. Onel Torres MD with a diagnosis of vestibular dysfunction. Date of Evaluation: 10/17/20 Physical Therapist: Onel Vazquez, CHRIST, OCS, CSCS - Visit Plan Frequency: 3x /Week Duration: 4-6 Weeks Plan: 3x/week for 2 weeks for. 1. EG to progress and monitor HEP of adaptation ex. 2. E LEARNING COORDINATOR to teach and progress machine based gym LE and core strength adn gentle CV and work to I at [employer]. Consider [employer] balance test when dizzyness better if needed. - Subjective Over a month ago had bad vertigo adn went to ER. Rolling in bed and noticed dizzyness. Was OK the night prior. Doctor thinks it was viral. admitted to hospital with dizzyness ad day or so later adn vomitted and to ER with dehydration. Gave meds for dizzyness. Not taking anymore. Is close to back to normal now. Currently just doesn't feel normal with orientation. No more spinning dizzyness. perception is constantly wonky and improving overall. 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 Sleeps well for the most part. Mornings are worse. No YAO, no neck pain. Feels 85% right now. - Objective Walks normal, trasntiions normal, steps reciprocal without rail. Full cervical aROM without pain today. SLS 30 seconds eo, ec slightly more wobble. - B hallpike johnny tests, - roll test. Oculomotor: no nystagmus with gaze or head shake. - ocular tilt. - skew eye deviation. normal convergence. normal pursuit and saccades. VOR causes dizzyness more so walking but even sitting for 15 seconds plus after 30 sec performance. L head thrust+ - Balance/Special Test Scores Dizziness Score: 54 - Goals Goal 1:: abolish dizzy feeling in normal daily activites Goal Time Frame: 4-6 Weeks Goal 2:: I appropriate ex program without symptoms for machines in gym and gentle CV. Goal Time Frame: 4-6 Weeks Goal 3:: Pt back to 100% ormal activiites including golf and basketball. Goal Time Frame: 4-6 Weeks - Rehabilitation Potential Physical Therapy Diagnosis: vestibular dysfunction and related deficits. Rehabilitation Potential: Fair - Anticipated Interventions Patient/Client Instruction: Educate patient on: Condition, Plan of Care For the Purpose of:: To increase tolerance to activity/condition/position, To improve ability of physical actions for home/community/work/leisure Therapeutic Exercise to Include: Strength training, Postural training, Gait and locomotor training, Neuromotor development For the Purpose of:: To improve muscle performance and motor function, To increase tolerance to activity/condition/position, To improve ability of physical actions for home/community/work/leisure Thank you for the opportunity to evaluate your patient. For Medicare and Medicare HMO plans, please review the plan of care and approve it. It will need to be FAXED BACK to us at [phone] for Medicare purposes. For Medicare only, by signing this I certify the plan of care. Please let me know if there are questions or concerns regarding this plan of care. Physician Signature: Date:
--- NOTE | 2020-11-15 15:00 | HP.PTDCSUM ---
It has been my pleasure to treat MAYANK LINDO referred by Dr. Onel Torres MD, with the diagnosis of vestibular dysfunction for a total of 9 visit(s). Discharge Date: 11/15/20 Please see the following information for a summary of their discharge status. Subjective: No dizzyness at all anymore. maybe slightly off balance after strenuous activity because I am in such poor shape. I feel gassed after work. Will see cancer and blood doctor at some point soon. No dizzyness. % Improvement: 99 Objective/Function: Unable to create any dizzyness today with bouncing horiz VOR, stoop and recover, diagonal Walking VOR or VOR x 2. This coincides with patients improvement in overall dizzyness(abolished) However he still get fatigued easy and will continue doctoring for this. Goal 1:: abolish dizzy feeling in normal daily activites Goal Progress: Goal Met Goal 2:: I appropriate ex program without symptoms for machines in gym and gentle CV. Goal Progress: fatigued Goal 3:: Pt back to 100% ormal activiites including golf and basketball. Goal Progress: too fatigued Plan: d/c PT Discharge Comments: Pt doing well with dizzyness as it is abolished but continues to be too fatigued with normal daily activities and will continue doctoring for that. [employer] exercises were the most helpful in therapy. If there are questions or concerns regarding this patient's physical therapy, please feel free to call me at [phone]. Thank you for the referral of this patient. Sincerely, Onel Vazquez, DPT, OCS, CSCS Balance/Gait/Functional tests - Balance/Special Test Scores Dizziness Score: 0
== END 2020-11-15 15:44 | disposition home or self-care (01) ==
LOC: PT 14:30
PROVIDERS: PCP Family Medicine; Referring Provider Family Medicine; Visit Provider Family Medicine
DX: H81.90 Unspecified disorder of vestibular function, unspecified ear (principal); R26.89 Other abnormalities of gait and mobility; R27.8 Other lack of coordination
CPT/HCPCS: 97110; 97113; 97161; 97164; 97530

== ENCOUNTER → 2020-11-20 15:28 | Outpatient (CLI) | payer OTHER, SELFPAY ==
[2020-11-22 16:08] LABS: Endomysial Antibody IgA Negative (Negative)
[2020-11-22 17:26] LABS: Immunoglobulin A 320 mg/dL (90-386); t-Transglutaminase IgA <2 U/mL (0-3)
== END ==
PROVIDERS: PCP Family Medicine; Referring Provider Internal Medicine Gastroenterology; Visit Provider Internal Medicine Gastroenterology
DX: D50.9 Iron deficiency anemia, unspecified (principal)
CPT/HCPCS: 36415; 82784; 83516; 86255

== ENCOUNTER → 2020-11-28 10:56 | Outpatient (CLI) | payer OTHER, SELFPAY | PROVIDERS: PCP Family Medicine; Referring Provider Family Medicine; Visit Provider Family Medicine | DX: U07.1 COVID-19 (principal) | CPT/HCPCS: 87635; U0005; U0003 ==

== ENCOUNTER → 2020-12-10 15:19 | Outpatient (CLI) | payer OTHER, SELFPAY ==
[2020-12-10 15:27] LABS: Lyme Ab Screen Interpretation REF LAB
[2020-12-13 16:15] LABS: B. henselae IgG Negative titer (Neg:<1:320); B. henselae IgM Negative titer (Neg:<1:100); B. quintana IgG Negative titer (Neg:<1:320)
[2020-12-13 16:52] LABS: B. quintana IgM Negative titer (Neg:<1:100); CMV Antibody IgG < 0.60 U/mL (0.00-0.59); EBV Acute VCA IgM < 36.0 U/mL (0.0-35.9); EBV Early Antigen IgG <9.0 U/mL (0.0-8.9); EBV Nuclear Antigen IgG > 600.0 U/mL (0.0-17.9); EBV-VCA IgG > 600.0 U/mL (0.0-17.9); Lyme Scn Total Ab w/Rflx <0.91 ISR (0.00-0.90); PARVOVIRUS B19 IGG 5.2 index (0.0-0.8); PARVOVIRUS B19 IGM 0.1 index (0.0-0.8)
== END ==
PROVIDERS: PCP Family Medicine; Referring Provider Family Medicine; Visit Provider Family Medicine
DX: R53.83 Other fatigue (principal)
CPT/HCPCS: 36415; 86611; 86618; 86644; 86663; 86664; 86665; 86747

== ENCOUNTER → 2021-10-14 | Outpatient (CLI) | payer OTHER, SELFPAY ==
[2021-10-14 12:32] LABS: Cholesterol 247 mg/dL (200); Ferritin 120 ng/mL (26-388); High Density Lipoprotein 70 mg/dL; Triglycerides 155 mg/dL; Very Low Density Lipoprotein 31 mg/dL (5-40)
[2021-10-14 12:34] LABS: Hematocrit 40.5 % (40-54); Hemoglobin 14.1 g/dL (13.0-16.5)
== END | disposition home or self-care (01) ==
LOC: MTLAB 10:12
PROVIDERS: PCP Family Medicine; Referring Provider Family Medicine; Visit Provider Family Medicine
DX: Z00.00 Encounter for general adult medical examination without abnormal findings (principal); E61.1 Iron deficiency
CPT/HCPCS: 36415; 80061; 82728; 85014; 85018

== ENCOUNTER → 2022-09-07 | Outpatient (CLI) | payer OTHER, SELFPAY ==
[2022-09-07 15:00] LABS: AST(SGOT) 39 U/L (15-37); Alanine Aminotransfer ALT/SGPT 99 U/L (16-61); Albumin, Serum 3.9 g/dL (3.2-5.0); Alkaline Phosphatase 87 U/L (45-117); Anion Gap 7 (5-15); BUN 14 mg/dL (7-18); BUN/Creat Ratio 16.7 RATIO (10-20); Calcium,Total 9.5 mg/dL (8.5-10.1); Chloride 104 mmol/L (98-107); Cholesterol 268 mg/dL (200); Creatinine, Serum 0.84 mg/dL (0.70-1.30); EST Glomerular Filtration Rate 112 mL/min (>60); Est Glom Filt Rate - Afr Amer 135 mL/min (>60); Glucose 92 mg/dL (74-106); High Density Lipoprotein 71 mg/dL; Potassium 3.8 mmol/L (3.5-5.1); Protein, Total 7.9 g/dL (6.4-8.2); Sodium Level 139 mmol/L (136-145); Triglycerides 90 mg/dL; Very Low Density Lipoprotein 18 mg/dL (5-40)
== END | disposition home or self-care (01) ==
LOC: MTLAB 11:29
PROVIDERS: PCP Family Medicine; Referring Provider Family Medicine; Visit Provider Family Medicine
DX: Z13.1 Encounter for screening for diabetes mellitus (principal)
CPT/HCPCS: 36415; 80053; 80061

== ENCOUNTER → 2022-12-16 | Outpatient (CLI) | payer OTHER, SELFPAY ==
[2022-12-16 17:45] LABS: Absolute Lymphocyte Count 1.95 X10^3/uL (0.83-4.51); Absolute Neutrophil Count 4.1 X10^3/uL (2.0-7.7); Basophil# 0.06 X10^3/uL; Basophil% 0.9 % (0-1); Eosinophil# 0.16 X10^3/uL; Eosinophils% 2.3 % (0-5); Hematocrit 43.2 % (40-54); Hemoglobin 14.5 g/dL (13.0-16.5); Lymphocyte # 1.95 X10^3/ul (0.83-4.51); Lymphocyte % 28.5 % (19-41); Mean Corp Hgb Conc 33.6 g/dL (32-36); Mean Corpuscular Hgb 29.7 pg (27.0-32.0); Mean Corpuscular Volume 88.5 fL (80-94); Mean Platelet Vol. 9.5 fl (6.2-12.0); Monocyte# 0.56 X10^3/uL; Monocyte% 8.2 % (0-10); NRBC Flagged by Analyzer 0 % (0-5); Neutrophil % 59.8 % (47-70); Platelet Count 290 K/mm3 (150-450); RBC Distribution Width CV 12.4 % (11.6-14.6); RBC Distribution Width SD 40.4 fl (35.1-43.9); RET-HE 33.9 pg (30-35); Red Blood Count 4.88 M/mm3 (4.6-6.2); Reticulocyte Count 1.54 % (0.5-1.5); White Blood Count 6.9 K/mm3 (4.4-11.0)
[2022-12-16 18:00] LABS: Erythrocyte Sedimentation Rate 5 mm/hr (0-20)
[2022-12-16 18:16] LABS: Vitamin B12 589 pg/mL (211-911)
[2022-12-16 19:16] LABS: ALB/GLOB Ratio 1.1 RATIO (0.9-2.4); AST(SGOT) 28 U/L (15-37); Alanine Aminotransfer ALT/SGPT 63 U/L (16-61); Albumin, Serum 4.3 g/dL (3.2-5.0); Alkaline Phosphatase 88 U/L (45-117); Amylase 59 U/L (25-115); Anion Gap 5 (5-15); BUN 18 mg/dL (7-18); CPK Total, Creatine Kinase 120 U/L (39-308); CRP < 2.90 mg/L (0.0-3.0); Calcium,Total 9.1 mg/dL (8.5-10.1); Chloride 104 mmol/L (98-107); Creatinine, Serum 0.95 mg/dL (0.70-1.30); EST Glomerular Filtration Rate 97 mL/min (>60); Est Glom Filt Rate - Afr Amer 117 mL/min (>60); Ferritin 139 ng/mL (26-388); Globulin 3.9 g/dL (2.2-4.2); Glucose 90 mg/dL (74-106); Iron 62 ug/dL (65-175); Iron Binding Capacity,Total 377 ug/dL (250-450); LDH 170 U/L (87-241); Lipase 43 U/L (13-75); Potassium 3.4 mmol/L (3.5-5.1); Protein, Total 8.2 g/dL (6.4-8.2); Sodium Level 137 mmol/L (136-145)
[2022-12-21 04:06] LABS: Alpha-1-Globulins 0.2 g/dL (0.0-0.4); Alpha-2-Globulins 0.7 g/dL (0.4-1.0); Anti-Parietal Cell AB, QN 12.8 Units (0.0-20.0); Anti-Smooth Muscle ABS 9 Units (0-19); Endomysial Antibody IgA Negative (Negative); Gamma Globulin 1.3 g/dL (0.4-1.8); Gastrin, Serum < 10 pg/mL (0-115); Haptoglobin 83 mg/dL (17-317); Immunoglobulin A 335 mg/dL (90-386); Immunoglobulin E 83 IU/mL (6-495); Immunoglobulin G 1288 mg/dL (603-1613); Immunoglobulin M 87 mg/dL (20-172); Intrinsic Factor Ab 1.1 AU/mL (0.0-1.1); PROEL- TOTAL PROTEIN 7.6 g/dL (6.0-8.5); t-Transglutaminase IgA <2 U/mL (0-3)
[2022-12-21 10:07] LABS: Anti-Centromere B Ab <0.2 AI (0.0-0.9); Anti-Chromatin <0.2 AI (0.0-0.9); Anti-Jo <0.2 AI (0.0-0.9); Anti-Mitochondrial AB <20.0 Units (0.0-20.0); Anti-Scleroderma-70 AB <0.2 AI (0.0-0.9); Anti-dsDNA Ab <1 IU/mL (0-9); Beef <0.10 kU/L (Class 0); Chocolate <0.10 kU/L (Class 0); Corn <0.10 kU/L (Class 0); Egg, Whole <0.10 kU/L (Class 0); Milk (Cow) <0.10 kU/L (Class 0); Peanut <0.10 kU/L (Class 0); Pork <0.10 kU/L (Class 0); RNP Ab <0.2 AI (0.0-0.9); SJOGREN'S Anti-SS-A test < 0.2 AI (0.0-0.9); SJOGREN'S Anti-SS-B test < 0.2 AI (0.0-0.9); Smith Ab <0.2 AI (0.0-0.9); Soybean <0.10 kU/L (Class 0); Wheat <0.10 kU/L (Class 0)
== END | disposition home or self-care (01) ==
LOC: MFPLAB 14:05 → MTLAB 14:18
PROVIDERS: PCP Family Medicine; Referring Provider Internal Medicine Gastroenterology; Visit Provider Internal Medicine Gastroenterology
DX: E61.1 Iron deficiency (principal)
CPT/HCPCS: 36415; 80053; 82150; 82550; 82607; 82728; 82746; 82784; 82785; 82941; 83010; 83516; 83540; 83550; 83615; 83690; 84165; 85025; 85045; 85652; 86003; 86005; 86140; 86225; 86235; 86255; 86334; 86340

== ENCOUNTER 2023-01-25 05:21 | Day surgery (SDC) | payer OTHER, SELFPAY ==
[2023-01-25 05:53] VITALS: BP 129/88; PULSE 61; RESP 16; TEMP 36.2; O2SAT 100; BMI 28.8
[2023-01-25] MEDS: Lactated Ringers 1,000 ML 15 ML IV (05:55)
--- NOTE | 2023-01-25 06:30 | EGD_PTH ---
PATIENT: MAYANK LINDO LOC: EN U#:[id number] AGE/SX: 32/M ROOM: RE01/25/[address]: Dr. Dru Acuña DO : 1990 BED: DIS: 01/25/2023 SPEC #: [id number] RECD: 01/25/23 10:12 STATUS: ARIAS REAngie #: [id number] JOSE: 01/25/23 06:[address]: Dru Acuña DEPT: SURGICAL PATHOLOGY RECD BY: Gianna Ayala ENTERED: 01/25/23 11:05 SP TYPE: EGD BIOPSY MARCELA DR: Skylar Torres PA-C Tissues: A - Duodenum, NOS B - Esophageal mucous membrane C - Ileum, NOS Procedures: Surgery Specimen Level IV HEADER OPERATION: Colonoscopy, EGD, biopsy PRE-OP DIAGNOSIS: Iron deficiency anemia TISSUE SUBMITTED: A. Duodenum, B. Distal esophagus, C. Terminal ileum MICROSCOPIC DIAGNOSIS A. Duodenum, biopsy: Fragments of duodenal mucosa, no pathologic diagnosis. B. Distal esophagus, biopsy: Fragments of gastroesophageal mucosa with chronic inflammation. Intestinal metaplasia (goblet cell metaplasia) not identified. See comment. C. Terminal ileum, biopsy: Fragments of small intestinal mucosa, no pathologic diagnosis. SJ: 01/26/2023 COMMENT B. Alcian blue/PAS stain with matched control is used in the evaluation of the specimen. MICROSCOPIC DESCRIPTION Slides are reviewed. GROSS DESCRIPTION A. Received is one container labeled with the patient name and designated duodenum. The specimen consists of multiple irregular fragments of light malik soft tissue that in aggregate measure 1.5 x 0.3 x 0.1 cm. The specimen is totally submitted in one cassette. B. Received is one container labeled with the patient name and designated distal esophagus. The specimen consists of multiple irregular fragments of light malik soft tissue that in aggregate measure 1 x .03 x0 .1 cm. The specimen is totally submitted in one cassette. C. Received is one container labeled with the patient name and designated terminal ileum. The specimen consists of multiple irregular fragment of light malik soft tissue that measures 1 x 0.3 x 0.1 cm. The specimen is totally submitted in one cassette. /MIC:raj 01/25/23 TC:3 CPT: 00582 x3, 10428
--- NOTE | 2023-01-25 06:39 | PCM.HP.BLA ---
History and Physical Date of Admission: 01/25/23 Chief Complaint: F/u for iron deficiency/general weakness. Details: MAYANK LINDO, is a 32 M who presents to the office today for initial consult. [facility] hematology follows for management of iron deficiency anemia with weakness. Cardiac workup without finding. LV 12.09.21 continue oral iron and f/u with PCP, return PRN.? PCP OV 08.04.22 for annual visit noting history of GERD and obesity.? ROS Const Constitutional: No fatigue ENT ENT: No difficulty swallowing Gastro GI: Positive for abdominal pain, belching, bloating, heartburn and excessive flatus; No change in bowel habits, change in stool character, coffee ground emesis, constipation, cramping, diarrhea, difficulty swallowing, feeling full early, incontinent of stools, Vomiting blood/hematemesis, Blood in stool, loose stools, Black,tarry stools, nausea/dyspepsia, pain with swallowing, vomiting or other Musc Musculoskeletal: No joint pain Skin Skin: No yellowing of the eye or itchy eyes Psych Psychiatric: No anxiety and No depression Endo Endocrine: No fatigue Aller/Imm Allergy/Immunologic: No itchy eyes Dony/Lymp Hematologic/Lymphatic: No easy bleeding or easy bruising Exam Const General: cooperative and comfortable Nutritional Appearance: average body habitus and well nourished [facility] Head: normal to inspection Ears: hearing grossly normal bilaterally Nose: external nose normal Face and sinus: normal facial exam Mouth: oral mucosae normal Throat: posterior oropharynx normal Eyes General: appearance normal, both eyes and all related structures Neck Neck: normal visual inspection Chest Chest palpation & inspection: normal inspection of the chest and normal palpation of entire chest wall Resp Effort & Inspection: normal respiratory effort Auscultation: Bilateral: Clear to Auscultation Cardio Palpation: normal PMI Rate: regular rate Rhythm: regular rhythm GI Inspection: normal to inspection Auscultation: normal bowel sounds Percussion: normal to percussion Palpation: no hepatosplenomegaly Skin General: no rashes or lesions noted Neuro General: patient alert Extrem General: normal to inspection Psych Affect: normal affect Quality Reporting Tobacco Screening ([facility] 138) Smoking Status: Never smoker Assessment and Plan Assessment and Plan (1) Iron deficiency: Status: Resolved Comment: Iron Profile is normal today 12/09/2021. Plan: 32-year-old man was referred for evaluation of anemia. He has had extensive cardiac work-up with normal result. Found to have iron deficiency and started on oral iron. He has developed extreme fatigue again, found to have iron deficiency again, restarted oral iron, remains on Iron. His last hemoglobin was 13.4. 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 The prevalence of FRANCES in the general population is around 2% and rises to >5% in premenopausal females.The presenting symptoms of FRANCES vary, but mostly include fatigue, exercise intolerance, weakness, headache, and irritability. These symptoms may also be present in iron deficiency without anaemia. The main causes of FRANCES are age-dependent. Iron loss by menstrual or gastrointestinal bleeding and malabsorption of iron in the small intestine are the most reported causes of FRANCES.?Less known and therefore an often forgotten cause of FRANCES, is physical exercise. 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 The patient complained of recurrent pains in her stomach, which had existed for several years.? He denies any blood in stool. He denies any chest pain or shortness of breath. His main complaint is bloating and nausea that worsens throughout the day. He has not had any upper or lower endoscopies. Differential diagnosis for symptoms does include celiac disease, autoimmune enteritis, peptic ulcer disease, H. pylori associated gastritis. I will perform biochemical testing along capsule endoscopy. He will likely need EGD and colonoscopy in the future. However if we find something on his capsule endoscopy may be can be empirically treated without the need for invasive procedure. ? Orders: Orders CPK Total, Creatine Kinase Today E61.1 - Iron deficiency GAUTAM Comprehensive Panel Today E61.1 - Iron deficiency Ferritin Today E61.1 - Iron deficiency CBC W/Diff, Automated Today E61.1 - Iron deficiency BERNABE + Protein Elect, Serum Today E61.1 - Iron deficiency Iron Binding Capacity,Total Today E61.1 - Iron deficiency LDH Today E61.1 - Iron deficiency Retic Panel Count Today E61.1 - Iron deficiency Iron Today E61.1 - Iron deficiency Haptoglobin Today E61.1 - Iron deficiency Anti-Mitochondrial AB Today E61.1 - Iron deficiency Anti-Smooth Muscle ABS Today E61.1 - Iron deficiency Celiac Disease Profile Today E61.1 - Iron deficiency CRP Today E61.1 - Iron deficiency Erythrocyte Sed Rate Today E61.1 - Iron deficiency Comprehensive Metabolic Profil Today E61.1 - Iron deficiency Miscellaneous Lab Procedure Today E61.1 - Iron deficiency Amylase Today E61.1 - Iron deficiency Lipase Today E61.1 - Iron deficiency Gastrin, Serum Today E61.1 - Iron deficiency Anti-Parietal Cell AB, QN Today E61.1 - Iron deficiency Intrinsic Factor Ab Today E61.1 - Iron deficiency Immunoglobulins G/A/M/E Today E61.1 - Iron deficiency Folates, (Folic Acid) Today E61.1 - Iron deficiency Vitamin B12 Today E61.1 - Iron deficiency I have examined the patient and the H&P has been reviewed. There are no clinical changes since date of exam.
[2023-01-25 07:10] VITALS: BP 129/88; BP 94/57; PULSE 56; RESP 16; TEMP 36.3; O2SAT 99
[2023-01-25 07:15] VITALS: BP 129/88; BP 96/57; PULSE 73; RESP 16; O2SAT 98
--- NOTE | 2023-01-25 07:18 | OP.EGD_ITS ---
Patient Name: Gordy Yuen Procedure Date: 01/25/2023 6:21 AM Date of : 1990 Age: 32 Procedure: Upper GI endoscopy Indications: Iron deficiency anemia Providers: Dru Acuña DO Medicines: Monitored Anesthesia Care Patient Profile: This is a 32 year old male. Refer to note in patient chart for documentation of history and physical. Patient has symptoms of acute dyspepsia. Complications: No immediate complications. Procedure: Pre-Anesthesia Assessment: - Prior to the procedure, a History and Physical was performed, and patient medications and allergies were reviewed. The patient is competent. The risks and benefits of the procedure and the sedation options and risks were discussed with the patient. All questions were answered and informed consent was obtained. Patient identification and proposed procedure were verified by the physician. Mental Status Examination: normal. Prophylactic Antibiotics: The patient does not require prophylactic antibiotics. Prior Anticoagulants: The patient has taken no anticoagulant or antiplatelet agents. After reviewing the risks and benefits, the patient was deemed in satisfactory condition to undergo the procedure. The anesthesia plan was to use monitored anesthesia care (MAC). Immediately prior to administration of medications, the patient was re-assessed for adequacy to receive sedatives. The heart rate, respiratory rate, oxygen saturations, blood pressure, adequacy of pulmonary ventilation, and response to care were monitored throughout the procedure. The physical status of the patient was re-assessed after the procedure. After obtaining informed consent, the endoscope was passed under direct vision. Throughout the procedure, the patient's blood pressure, pulse, and oxygen saturations were monitored continuously. The pediatric colonoscope was introduced through the mouth, and advanced to the second part of duodenum. The upper GI endoscopy was accomplished without difficulty. The patient tolerated the procedure well. Scope In: 6:46:13 AM Scope Out: 6:50:56 AM Total Procedure Duration Time 0 hours 4 minutes 43 seconds Findings: The Z-line was irregular and was found 40 cm from the incisors. Biopsies were taken with a cold forceps for histology. Verification of patient identification for the specimen was done. Estimated blood loss was minimal. The entire examined stomach was normal. No gross lesions were noted in the second portion of the duodenum. Biopsies for histology were taken with a cold forceps for evaluation of celiac disease. Verification of patient identification for the specimen was done. Estimated blood loss was minimal. Impression: - Z-line irregular, 40 cm from the incisors. Biopsied. - Normal stomach. - No gross lesions in the second portion of the duodenum. Biopsied. Recommendation: - Discharge patient to home. - Resume previous diet. - Continue present medications. - Await pathology results. Procedure Code(s): --- Professional --- 94737, Esophagogastroduodenoscopy, flexible, transoral; with biopsy, single or multiple CPT copyright 2021 [employer]. All rights reserved. The codes documented in this report are preliminary and upon oil well shooter review may be revised to meet current compliance requirements. Dru cAuña DO 01/25/2023 7:17:21 AM This report has been signed electronically. Number of Addenda: 0 Note Initiated On: 01/25/2023 6:21 AM
--- NOTE | 2023-01-25 07:18 | OP.CCLET_ITS ---
01/25/2023 [facility] Re : Upper GI endoscopy procedure for Gordy Torres This procedure was performed on Wednesday, January 25, 2023. My impressions and recommendations are as follows: Impressions : - Z-line irregular, 40 cm from the incisors. Biopsied. - Normal stomach. - No gross lesions in the second portion of the duodenum. Biopsied. Recommendations : - Discharge patient to home. - Resume previous diet. - Continue present medications. - Await pathology results. My findings are described in the full procedure note, which is enclosed. If I can be of further assistance, please feel free to contact me at . Sincerely, Dru Acuña, 01/25/2023 7:17:21 AM This report has been signed electronically.
[2023-01-25 07:20] VITALS: BP 129/88; BP 93/57; PULSE 51; RESP 16; O2SAT 98
[2023-01-25 07:25] VITALS: BP 117/69; BP 129/88; PULSE 68; RESP 16; TEMP 36.2; O2SAT 100
--- NOTE | 2023-01-25 07:25 | OP.COLON_ITS ---
Patient Name: Gordy Yuen Procedure Date: 01/25/2023 6:51 AM Date of : 1990 Age: 32 Procedure: Colonoscopy Indications: Iron deficiency anemia Providers: Dru Acuña DO Medicines: Monitored Anesthesia Care Patient Profile: This is a 32 year old male. Refer to note in patient chart for documentation of history and physical. Patient has symptoms of acute dyspepsia. Last Colonoscopy: none. The patient's first colonoscopy is today. Complications: No immediate complications. Procedure: Pre-Anesthesia Assessment: - Prior to the procedure, a History and Physical was performed, and patient medications and allergies were reviewed. The patient is competent. The risks and benefits of the procedure and the sedation options and risks were discussed with the patient. All questions were answered and informed consent was obtained. Patient identification and proposed procedure were verified by the physician. Mental Status Examination: normal. Prophylactic Antibiotics: The patient does not require prophylactic antibiotics. Prior Anticoagulants: The patient has taken no anticoagulant or antiplatelet agents. After reviewing the risks and benefits, the patient was deemed in satisfactory condition to undergo the procedure. The anesthesia plan was to use monitored anesthesia care (MAC). Immediately prior to administration of medications, the patient was re-assessed for adequacy to receive sedatives. The heart rate, respiratory rate, oxygen saturations, blood pressure, adequacy of pulmonary ventilation, and response to care were monitored throughout the procedure. The physical status of the patient was re-assessed after the procedure. After I obtained informed consent, the scope was passed under direct vision. Throughout the procedure, the patient's blood pressure, pulse, and oxygen saturations were monitored continuously. The pediatric colonoscope was introduced through the anus and advanced to the terminal ileum. The colonoscopy was performed without difficulty. The patient tolerated the procedure well. The quality of the bowel preparation was adequate. The terminal ileum, ileocecal valve, appendiceal orifice, and rectum were photographed. Scope In: 6:53:04 AM Scope Withdrawal Time 0 hours 8 minutes 40 seconds Scope Out: 7:05:33 AM Total Procedure Duration Time 0 hours 12 minutes 29 seconds Findings: The perianal and digital rectal examinations were normal. The colon (entire examined portion) appeared normal. The terminal ileum appeared normal. Biopsies were taken with a cold forceps for histology. Verification of patient identification for the specimen was done. Estimated blood loss was minimal. Impression: - The entire examined colon is normal. - The examined portion of the ileum was normal. Biopsied. Recommendation: - Discharge patient to home. - Resume previous diet. - Continue present medications. - Await pathology results. - Repeat colonoscopy in 10 years for screening purposes. Procedure Code(s): --- Professional --- 76197, Colonoscopy, flexible; with biopsy, single or multiple CPT copyright 2021 [employer]. All rights reserved. The codes documented in this report are preliminary and upon divorce attorney review may be revised to meet current compliance requirements. Dru Acuña DO 01/25/2023 7:24:31 AM This report has been signed electronically. Number of Addenda: 0 Note Initiated On: 01/25/2023 6:51 AM
--- NOTE | 2023-01-25 07:25 | OP.CCLET_ITS ---
01/25/2023 [facility] : Colonoscopy procedure for Gordy Torres This procedure was performed on Wednesday, January 25, 2023. My impressions and recommendations are as follows: Impressions : - The entire examined colon is normal. - The examined portion of the ileum was normal. Biopsied. Recommendations : - Discharge patient to home. - Resume previous diet. - Continue present medications. - Await pathology results. - Repeat colonoscopy in 10 years for screening purposes. My findings are described in the full procedure note, which is enclosed. If I can be of further assistance, please feel free to contact me at . Sincerely, Dru Acuña, 01/25/2023 7:24:31 AM This report has been signed electronically.
[2023-01-25 07:44] VITALS: BP 129/88
== END 2023-01-25 08:19 | disposition home or self-care (01) ==
LOC: EN 05:22 → AC 05:23
PROVIDERS: PCP Family Medicine; Referring Provider Family Medicine; Visit Provider Internal Medicine Gastroenterology
PROC: 0DJD8ZZ Inspection of Lower Intestinal Tract, Via Natural or Artificial Opening Endoscopic (ICD-10-PCS; CPT 45378; principal; 2023-01-25 06:25)
DX: R53.1 Weakness (principal); D50.9 Iron deficiency anemia, unspecified
CPT/HCPCS: 43239; 45380; 88305; J7120; J2405

== ENCOUNTER → 2024-08-11 | Outpatient (CLI) | payer OTHER, SELFPAY ==
[2024-08-11 16:29] LABS: ALB/GLOB Ratio 1.6 RATIO (0.9-2.4); AST(SGOT) 27 U/L (<=37); Alanine Aminotransfer ALT/SGPT 32 U/L (<=46); Albumin, Serum 4.5 g/dL (3.5-5.0); Alkaline Phosphatase 84 U/L (40-129); Anion Gap 11 (5-15); BUN 17 mg/dL (4-19); BUN/Creat Ratio 16.9 RATIO (10-20); Calcium,Total 9.4 mg/dL (7.6-11.0); Carbon Dioxide 26.4 mmol/L (21.0-32.0); Chloride 102 mmol/L (98-108); Cholesterol 270 mg/dL (<=200); Creatinine, Serum 0.98 mg/dL (0.70-1.20); EST Glomerular Filtration Rate 103 (>60); Globulin 2.9 g/dL (2.2-4.2); Glucose 92 mg/dL (70-99); High Density Lipoprotein 66 mg/dL; Low Density Lipoprotein Calc. 177 mg/dL; Potassium 3.9 mmol/L (3.3-5.1); Protein, Total 7.3 g/dL (5.9-8.4); Sodium Level 139 mmol/L (133-145); Total Bilirubin 0.45 mg/dL (0.00-1.30); Triglycerides 137 mg/dL; Very Low Density Lipoprotein 27 mg/dL (5-40); cholesterol:hdl ratio screen 4.12
== END | disposition home or self-care (01) ==
LOC: MTLAB 13:08
PROVIDERS: PCP Family Medicine; Referring Provider Family Medicine; Visit Provider Family Medicine
DX: Z13.220 Encounter for screening for lipoid disorders (principal); Z13.1 Encounter for screening for diabetes mellitus
CPT/HCPCS: 36415; 80053; 80061